=== PATIENT | male | born 1950 | race Caucasian/White ===

== ENCOUNTER 2020-11-23 09:45 | Outpatient (REF) | payer MEDICARE, OTHER, SELFPAY ==
[2020-11-23 11:14] LABS: MANUAL DIFF FLAG NO
[2020-11-23 11:41] LABS: Basophils Percent Auto 0.5 % (0-2); Eosinophils Absolute Auto 0.2 X10*3/uL (0.0-0.4); Eosinophils Percent Auto 3.8 % (0-4); Hematocrit 41.4 % (42-52); Hemoglobin 14.3 g/dl (14.0-18.0); Imm Gran Abs Auto 0.01 X10*3/uL (0.00-0.03); Imm Gran Pct Auto 0.2 % (0.0-0.4); Lymphocytes Absolute Auto 2.5 X10*3/uL (1.2-4.9); Lymphocytes Percent Auto 39.1 % (20-40); Mean Corpuscular HGB Conc 34.5 g/dl (31.0-36.0); Mean Corpuscular Hemoglobin 34.6 pg (27.0-33.0); Mean Corpuscular Volume 100.2 fL (80-98); Mean Platelet Volume 10.5 fL (9.4-12.4); Monocytes Absolute Auto 0.8 X10*3/uL (0.1-1.2); Monocytes Percent Auto 12.3 % (2-11); Neutrophils Absolute Auto 2.8 X10*3/uL (2.0-8.3); Neutrophils Percent Auto 44.1 % (45-73); Platelet Count 261 X10*3/uL (160-400); Red Blood Count 4.13 X10*6/uL (4.60-5.80); Red Cell Distribution Width 11.4 % (11.0-16.0); White Blood Count 6.4 X10*3/uL (4.8-10.8)
[2020-11-23 11:46] LABS: Alanine Aminotransferase 26 U/L (0-40); Albumin Level 4.5 g/dL (3.5-5.0); Alkaline Phosphatase 61 U/L (39-117); Anion Gap 15 (12-20); Aspartate Amino Transferase 22 U/L (5-37); Bilirubin Total 0.4 mg/dL (0.0-1.0); Blood Urea Nitrogen 20 mg/dL (9-16); Calcium 9.3 mg/dL (8.4-10.2); Carbon Dioxide 23 mmol/L (22-29); Chloride 106 mmol/L (96-108); Cholesterol 245 mg/dL; Estimated Glomerular Filt Rate > 60; Glucose Fasting 103 mg/dL (60-99); HDL Cholesterol 64 mg/dL; LDL Cholesterol Calculated 160 mg/dl; Potassium 4.5 mmol/l (3.3-5.1); Sodium 139 mmol/L (135-145); Total Protein 7.3 g/dL (6.5-8.0); Triglycerides 107 mg/dL
[2020-11-23 12:09] LABS: Prostate Specific Antigen Scr 1.44 ng/mL (<0.05-4.0); TSH reflex Free T4 1.81 mIU/mL (0.32-4.0)
[2020-11-23 12:14] LABS: Ferritin 168 ng/mL (20-250)
== END 2020-11-23 09:46 | disposition home or self-care (01) ==
LOC: HO.HMGCLDS 09:45
PROVIDERS: PCP Nurse Practitioner Family; Visit Provider Nurse Practitioner Family
DX: I10 Essential (primary) hypertension (principal); R79.89 Other specified abnormal findings of blood chemistry; Z12.5 Encounter for screening for malignant neoplasm of prostate
CPT/HCPCS: 36415; 80053; 80061; 82728; 84153; 84443; 85025

== ENCOUNTER → 2020-12-06 09:24 | Outpatient (REF) | payer MEDICARE, OTHER, SELFPAY ==
--- NOTE | 2020-12-06 09:28 | CA_ITS ---
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 Normal LV systolic function with grade 1 diastolic dysfunction 2. Mild fibrocalcific aortic valve changes noted with normal cardiac valvular Doppler 3. Normal RV systolic pressure 4. No pericardial effusion Findings Left Ventricle Normal left ventricular size, thickness, and systolic function. The visually estimated ejection fraction is between 60-65%. Spectral Doppler is indicative of an impaired relaxation filling pattern. E/E prime ratio is <8, consistent with normal filling pressures. Evidence suggests grade I (mild) diastolic dysfunction. Right Ventricle Normal right ventricular cavity size and systolic function. Atria Both atria are normal in size. There is lipomatous hypertrophy of the interatrial septum. There is no evidence of interatrial shunt. Aortic Valve There is mild calcification of the aortic valve. There is no aortic valve stenosis. There is no aortic valve regurgitation. Mitral Valve Normal mitral valve structure and function. There is trace mitral valve regurgitation. There is no mitral valve stenosis. Pulmonic Valve The pulmonic valve was not well visualized. Tricuspid Valve Normal tricuspid valve structure. There is mild tricuspid valve regurgitation. The right ventricular systolic pressure is normal. The right ventricular systolic pressure is 33 mmHg. Normal right atrial pressure. There is no evidence of pulmonary hypertension. Great Vessels All visible segments of the aorta are normal in size. The pulmonary artery was not well visualized. Venous The inferior vena cava is normal in size and collapses greater than 50% with inspiration. Pericardium/Pleural There is no evidence of pericardial effusion. Prior Study Comparison No prior study available for comparison. Measurements 2D Linear Measurements IVSd: 1.22 0.6-0.9/0.6-1.0 cm LVIDd: 3.66 3.9-5.3/4.2-5.9 cm LVIDd Index: 2.06 2.4-3.2/2.2-3.1 cm/m2 LVIDs: 2.21 2.0-3.6 cm LVPWd: 1.24 0.7-1.1 cm Ao Root: 2.10 2.1-3.5 cm LA Diam: 3.70 2.7-3.8/3.0-4.0 cm LAIDs Index: 2.08 1.5-2.3 cm/m2 LV Mass: 187.40 67-162/88-224 g LV Mass Index: 105.28 43-95/49-115 g/m2 LVOT Diam: 2.00 3.0+(-)1.3 cm 2D Systolic Function EF 4C: 68.70 >55% EF 2C: 63.70 >55% EF BiP: 65.90 >55% Mitral Valve MV Pk E: 0.59 MV PK A: 0.97 MV Decel Time: 310.00 E/A: 0.60 E'Lateral: 7.16 E'Medial: 4.54 E/E' Med: 12.90 E/E' Lat: 8.20 PHT: 91.00 MVA PHT: 2.42 Decel [place]: 1.89 Aortic Valve AoV Pk Taj: 1.89 AoV Mn Taj: 1.29 AoV VTI: 0.37 AoV Pk Grad: 14.00 Aov Mn Grad: 8.00 WHITNEY Cont.VTI: 2.46 LVOT LVOT Pk Taj: 1.47 LVOT Mn Taj: 0.90 LVOT VTI: 0.29 LVOT Pk Grad: 9.00 LVOT Mn Grad: 4.00 LVOT Diam: 2.00 LVOT Area: 3.14 Diastolic Function MV Pk E: 0.59 MV Pk A: 0.97 E/A: 0.60 E'Medial: 4.54 E/E' Med: 12.90 E' Laterial: 7.16 E/E' Lat: 8.20 Tricuspid Valve TR Pk Taj: 2.74 TR Pk Grad: 30.00 RA Press: 3.00 RVSP: 33.00 Great Vessels Aorta Ao Root-2D: 2.10 2.0-3.7 cm Ao Asc: 3.10 2.1-3.4 cm Pulmonary Valve PV Pk Taj: 1.67 Peak PV Grad: 11.00 Updated in Other Vendor System with Status of Final Pete Amador MD electronically signed on 12/06/2020 2:16:13 PM with status of Final
== END ==
LOC: HO.CARD 09:24
PROVIDERS: PCP Nurse Practitioner Family; Visit Provider Nurse Practitioner Family
DX: R01.1 Cardiac murmur, unspecified (principal)
CPT/HCPCS: 93306

== ENCOUNTER 2021-01-24 08:33 | Outpatient (REF) | payer MEDICARE, OTHER, SELFPAY ==
[2021-01-24 11:38] LABS: Alanine Aminotransferase 23 U/L (0-40); Albumin Level 4.5 g/dL (3.5-5.0); Alkaline Phosphatase 68 U/L (39-117); Anion Gap 12 (12-20); Aspartate Amino Transferase 23 U/L (5-37); Bilirubin Total 0.7 mg/dL (0.0-1.0); Blood Urea Nitrogen 19 mg/dL (9-16); Carbon Dioxide 26 mmol/L (22-29); Chloride 106 mmol/L (96-108); Cholesterol 248 mg/dL; Estimated Glomerular Filt Rate > 60; Glucose Fasting 108 mg/dL (60-99); HDL Cholesterol 63 mg/dL; LDL Cholesterol Calculated 156 mg/dl; Potassium 4.5 mmol/L (3.3-5.1); Sodium 139 mmol/L (135-145); Total Protein 7.2 g/dL (6.5-8.0); Triglycerides 147 mg/dL
== END 2021-01-24 08:34 | disposition home or self-care (01) ==
LOC: HO.HMGCLDS 08:33
PROVIDERS: PCP Nurse Practitioner Family; Visit Provider Nurse Practitioner Family
DX: E78.5 Hyperlipidemia, unspecified (principal)
CPT/HCPCS: 36415; 80053; 80061

== ENCOUNTER 2021-03-21 09:31 | Outpatient (REF) | payer MEDICARE, OTHER, SELFPAY ==
[2021-03-21 12:08] LABS: Cholesterol 186 mg/dL; HDL Cholesterol 66 mg/dL; LDL Cholesterol Calculated 92 mg/dl; Triglycerides 144 mg/dL
== END 2021-03-21 09:32 | disposition home or self-care (01) ==
LOC: HO.HMGCLDS 09:31
PROVIDERS: PCP Nurse Practitioner Family; Visit Provider Nurse Practitioner Family
DX: E78.5 Hyperlipidemia, unspecified (principal)
CPT/HCPCS: 36415; 80061

== ENCOUNTER 2021-07-25 08:47 | Outpatient (REF) | payer MEDICARE, OTHER, SELFPAY ==
[2021-07-25 12:09] LABS: Alanine Aminotransferase 27 U/L (0-40); Albumin Level 4.4 g/dL (3.5-5.0); Alkaline Phosphatase 68 U/L (39-117); Anion Gap 15 (12-20); Aspartate Amino Transferase 23 U/L (5-37); Bilirubin Total 0.8 mg/dL (0.0-1.0); Blood Urea Nitrogen 16 mg/dL (9-16); Calcium 9.7 mg/dL (8.4-10.2); Carbon Dioxide 22 mmol/L (22-29); Chloride 107 mmol/L (96-108); Cholesterol 165 mg/dL; Estimated Glomerular Filt Rate > 60; Glucose Fasting 118 mg/dL (60-99); HDL Cholesterol 63 mg/dL; LDL Cholesterol Calculated 85 mg/dl; Potassium 4.5 mmol/L (3.3-5.1); Sodium 139 mmol/L (135-145); Total Protein 6.8 g/dL (6.5-8.0); Triglycerides 88 mg/dL
== END 2021-07-25 08:48 | disposition home or self-care (01) ==
LOC: HO.HMGCLDS 08:47
PROVIDERS: PCP Nurse Practitioner Family; Visit Provider Nurse Practitioner Family
DX: I10 Essential (primary) hypertension (principal); E78.5 Hyperlipidemia, unspecified
CPT/HCPCS: 36415; 80053; 80061

== ENCOUNTER 2021-12-28 08:59 | Outpatient (REF) | payer MEDICARE, OTHER, SELFPAY ==
[2021-12-28 11:39] LABS: MANUAL DIFF FLAG NO
[2021-12-28 11:42] LABS: Appearance Urine CLEAR; Color Urine YELLOW; Glucose Urine UA NEG (NEG); Leukocyte Esterase Urine NEG (NEG); Nitrite Urine NEG (NEG); Urine Blood NEG (NEG); Urine Ketones NEG (NEG); Urine Protein NEG (NEG-TRACE)
[2021-12-28 11:50] LABS: Basophils Percent Auto 0.5 % (0-2); Eosinophils Absolute Auto 0.2 X10*3/uL (0.0-0.4); Eosinophils Percent Auto 4.1 % (0-4); Hematocrit 38.9 % (42.0-52.0); Hemoglobin 13.2 g/dl (14.0-18.0); Imm Gran Abs Auto 0.01 X10*3/uL (0.00-0.03); Imm Gran Pct Auto 0.2 % (0.0-0.4); Lymphocytes Absolute Auto 2.3 X10*3/uL (1.2-4.9); Lymphocytes Percent Auto 38.5 % (20-40); Mean Corpuscular HGB Conc 33.9 g/dl (31.0-36.0); Mean Corpuscular Hemoglobin 34.1 pg (27.0-33.0); Mean Corpuscular Volume 100.5 fL (80.0-98.0); Mean Platelet Volume 10.5 fL (9.4-12.4); Monocytes Absolute Auto 0.6 X10*3/uL (0.1-1.2); Monocytes Percent Auto 10.8 % (2-11); Neutrophils Absolute Auto 2.7 x10*3/uL (2.0-8.3); Neutrophils Percent Auto 45.9 % (45-73); Platelet Count 246 X10*3/uL (160-400); Red Blood Count 3.87 X10*6/uL (4.60-5.80); Red Cell Distribution Width 11.8 % (11.0-16.0); White Blood Count 5.9 X10*3/uL (4.8-10.8)
[2021-12-28 12:04] LABS: Alanine Aminotransferase 22 U/L (0-40); Albumin Level 4.2 g/dL (3.5-5.0); Alkaline Phosphatase 68 U/L (39-117); Anion Gap 13 (12-20); Aspartate Amino Transferase 20 U/L (5-37); Bilirubin Total 0.6 mg/dL (0.0-1.0); Blood Urea Nitrogen 14 mg/dL (9-16); Calcium 9.6 mg/dL (8.4-10.2); Carbon Dioxide 24 mmol/L (22-29); Chloride 109 mmol/L (96-108); Cholesterol 170 mg/dL; Estimated Glomerular Filt Rate > 60; Glucose Fasting 98 mg/dL (60-99); HDL Cholesterol 59 mg/dL; LDL Cholesterol Calculated 98 mg/dl; Potassium 4.6 mmol/L (3.3-5.1); Sodium 141 mmol/L (135-145); Total Protein 6.9 g/dL (6.5-8.0); Triglycerides 66 mg/dL
[2021-12-28 12:28] LABS: Prostate Specific Antigen Scr 1.32 ng/mL (<0.05-4.0); TSH reflex Free T4 1.21 uIU/mL (0.32-4.0)
== END 2021-12-28 09:00 | disposition home or self-care (01) ==
LOC: HO.HMGCLDS 08:59
PROVIDERS: Visit Provider Nurse Practitioner Family
DX: Z12.5 Encounter for screening for malignant neoplasm of prostate (principal); E78.5 Hyperlipidemia, unspecified; I10 Essential (primary) hypertension
CPT/HCPCS: 36415; 80053; 80061; 81003; 84153; 84443; 85025

== ENCOUNTER 2022-05-30 07:16 | Outpatient (REF) | payer MEDICARE, OTHER, SELFPAY ==
[2022-05-30 11:04] LABS: MANUAL DIFF FLAG NO
[2022-05-30 11:14] LABS: Basophils Percent Auto 0.4 % (0-2); Eosinophils Absolute Auto 0.2 X10*3/uL (0.0-0.4); Eosinophils Percent Auto 3.8 % (0-4); Hematocrit 39.1 % (42.0-52.0); Hemoglobin 13.2 g/dl (14.0-18.0); Imm Gran Abs Auto 0.02 X10*3/uL (0.00-0.03); Imm Gran Pct Auto 0.4 % (0.0-0.4); Lymphocytes Absolute Auto 2.1 X10*3/uL (1.2-4.9); Lymphocytes Percent Auto 38.3 % (20-40); Mean Corpuscular HGB Conc 33.8 g/dl (31.0-36.0); Mean Corpuscular Hemoglobin 34.1 pg (27.0-33.0); Mean Platelet Volume 9.9 fL (9.4-12.4); Monocytes Absolute Auto 0.6 X10*3/uL (0.1-1.2); Monocytes Percent Auto 11.4 % (2-11); Neutrophils Absolute Auto 2.5 x10*3/uL (2.0-8.3); Neutrophils Percent Auto 45.7 % (45-73); Platelet Count 249 X10*3/uL (160-400); Red Blood Count 3.87 X10*6/uL (4.60-5.80); White Blood Count 5.5 X10*3/uL (4.8-10.8)
[2022-05-30 11:14] LABS: Appearance Urine CLEAR; Color Urine YELLOW; Glucose Urine UA NEG (NEG); Leukocyte Esterase Urine NEG (NEG); Nitrite Urine NEG (NEG); PH 5.5 (5.0-8.0); Urine Blood NEG (NEG); Urine Ketones NEG (NEG); Urine Protein NEG (NEG-TRACE)
[2022-05-30 11:26] LABS: Alanine Aminotransferase 18 U/L (0-40); Albumin Level 4.5 g/dL (3.5-5.0); Alkaline Phosphatase 63 U/L (39-117); Anion Gap 14 (12-20); Aspartate Amino Transferase 21 U/L (5-37); Bilirubin Total 0.6 mg/dL (0.0-1.0); Blood Urea Nitrogen 22 mg/dL (9-16); Calcium 9.3 mg/dL (8.4-10.2); Carbon Dioxide 21 mmol/L (22-29); Chloride 108 mmol/L (96-108); Cholesterol 237 mg/dL; Estimated Glomerular Filt Rate > 60; Glucose Fasting 107 mg/dL (60-99); HDL Cholesterol 61 mg/dL; LDL Cholesterol Calculated 152 mg/dl; Potassium 4.7 mmol/L (3.3-5.1); Sodium 138 mmol/L (135-145); Total Protein 7.2 g/dL (6.5-8.0); Triglycerides 120 mg/dL
[2022-05-30 11:48] LABS: Ferritin 174 ng/mL (20-250)
== END 2022-05-30 07:17 | disposition home or self-care (01) ==
LOC: HO.HMGCLDS 07:16
PROVIDERS: Visit Provider Nurse Practitioner Family
DX: E78.5 Hyperlipidemia, unspecified (principal); R79.89 Other specified abnormal findings of blood chemistry
CPT/HCPCS: 36415; 80053; 80061; 81003; 82728; 84443; 85025

== ENCOUNTER 2022-11-22 07:19 | Outpatient (REF) | payer MEDICARE, OTHER, SELFPAY ==
[2022-11-22 11:29] LABS: Appearance Urine Clear; Color Urine Yellow; Glucose Urine UA Negative (Negative); Leukocyte Esterase Urine Negative (Negative); Nitrite Urine Negative (Negative); Specific Gravity - Urine 1.015 (1.005-1.025); Urine Blood Negative (Negative); Urine Ketones Negative (Negative); Urine Protein Negative (Neg-Trace)
[2022-11-22 11:38] LABS: MANUAL DIFF FLAG NO
[2022-11-22 11:46] LABS: Basophils Percent Auto 0.7 % (0-2); Eosinophils Absolute Auto 0.2 X10*3/uL (0.0-0.4); Eosinophils Percent Auto 4.3 % (0-4); Hematocrit 40.4 % (42.0-52.0); Hemoglobin 13.7 g/dl (14.0-18.0); Imm Gran Abs Auto 0.01 X10*3/uL (0.00-0.03); Imm Gran Pct Auto 0.2 % (0.0-0.4); Lymphocytes Absolute Auto 2.6 X10*3/uL (1.2-4.9); Lymphocytes Percent Auto 47.7 % (20-40); Mean Corpuscular HGB Conc 33.9 g/dl (31.0-36.0); Mean Corpuscular Volume 103.3 fL (80.0-98.0); Mean Platelet Volume 10.5 fL (9.4-12.4); Monocytes Absolute Auto 0.6 X10*3/uL (0.1-1.2); Monocytes Percent Auto 11.8 % (2-11); Neutrophils Absolute Auto 1.9 x10*3/uL (2.0-8.3); Neutrophils Percent Auto 35.3 % (45-73); Platelet Count 244 X10*3/uL (160-400); Red Blood Count 3.91 X10*6/uL (4.60-5.80); Red Cell Distribution Width 11.9 % (11.0-16.0); White Blood Count 5.4 X10*3/uL (4.8-10.8)
[2022-11-22 12:17] LABS: Alanine Aminotransferase 36 U/L (0-40); Albumin Level 4.2 g/dL (3.5-5.0); Alkaline Phosphatase 66 U/L (39-117); Anion Gap 14 (12-20); Aspartate Amino Transferase 34 U/L (5-37); Bilirubin Total 0.5 mg/dL (0.0-1.0); Blood Urea Nitrogen 17 mg/dL (9-16); Calcium 9.5 mg/dL (8.4-10.2); Carbon Dioxide 24 mmol/L (22-29); Chloride 107 mmol/L (96-108); Cholesterol 228 mg/dL; Estimated Glomerular Filt Rate > 60; Glucose Fasting 90 mg/dL (60-99); HDL Cholesterol 59 mg/dL; LDL Cholesterol Calculated 147 mg/dl; Potassium 4.7 mmol/L (3.3-5.1); Sodium 140 mmol/L (135-145); Total Protein 6.8 g/dL (6.5-8.0); Triglycerides 111 mg/dL
[2022-11-22 12:21] LABS: TSH reflex Free T4 2.94 uIU/mL (0.32-4.0)
== END 2022-11-22 07:20 | disposition home or self-care (01) ==
LOC: HO.HMGCLDS 07:19
PROVIDERS: PCP Nurse Practitioner Family; Visit Provider Nurse Practitioner Family
DX: E78.5 Hyperlipidemia, unspecified (principal); I10 Essential (primary) hypertension; Z12.5 Encounter for screening for malignant neoplasm of prostate
CPT/HCPCS: 36415; 80053; 80061; 81003; 84153; 84443; 85025

== ENCOUNTER → 2022-12-26 08:18 | Outpatient (BNVA) | payer MEDICARE, OTHER, SELFPAY | PROVIDERS: PCP Nurse Practitioner Family; Visit Provider Nurse Practitioner Family | DX: Z12.11 Encounter for screening for malignant neoplasm of colon (principal) | CPT/HCPCS: 99202 ==

== ENCOUNTER 2023-02-05 06:46 | Outpatient (REF) | payer MEDICARE, OTHER, SELFPAY ==
[2023-02-05 12:27] LABS: Alanine Aminotransferase 33 U/L (0-40); Albumin Level 4.1 g/dL (3.5-5.0); Alkaline Phosphatase 65 U/L (39-117); Anion Gap 11 (12-20); Aspartate Amino Transferase 32 U/L (5-37); Bilirubin Total 0.8 mg/dL (0.0-1.0); Blood Urea Nitrogen 14 mg/dL (9-16); Calcium 9.4 mg/dL (8.4-10.2); Carbon Dioxide 24 mmol/L (22-29); Chloride 110 mmol/L (96-108); Cholesterol 163 mg/dL; Estimated Glomerular Filt Rate > 60; Glucose Fasting 95 mg/dL (60-99); HDL Cholesterol 59 mg/dL; LDL Cholesterol Calculated 83 mg/dl; Potassium 4.4 mmol/L (3.3-5.1); Sodium 141 mmol/L (135-145); Total Protein 6.6 g/dL (6.5-8.0); Triglycerides 107 mg/dL
== END 2023-02-05 06:47 | disposition home or self-care (01) ==
LOC: HO.HMGCLDS 06:46
PROVIDERS: PCP Nurse Practitioner Family; Visit Provider Nurse Practitioner Family
DX: E78.5 Hyperlipidemia, unspecified (principal)
CPT/HCPCS: 36415; 80053; 80061

== ENCOUNTER 2023-03-19 08:43 | Emergency (ER) | payer MEDICARE, OTHER, SELFPAY ==
[2023-03-19 09:12] VITALS: BP 159/83; PULSE 76; RESP 16; TEMP 36.6; O2SAT 98; BMI 26.6
--- NOTE | 2023-03-19 09:49 | ED_ITS ---
HPI - Skin/Abscess/Foreign Bdy General Chief complaint: Skin/Abscess/Foreign Body Stated complaint: Abscess on Buttock Time Seen by Provider: 03/19/23 09:21 Source: patient Mode of arrival: ambulatory Limitations: no limitations History of Present Illness HPI narrative: 72-year-old male with history of hypertension and hyperlipidemia presents to the ER with left hip swelling, redness and wound. Patient reports 2 weeks ago he had a trip and fall landing on a piece of wood hitting the left hip. Patient noted after the fall he had some slight swelling and redness to the area but was unsure if there was any open wound or abrasion. Swelling and redness has continued since then but on Friday the wound opened and expressed quite a bit of drainage which was purulent from the site. Patient reports he felt like the swelling and the pain is better but noticed that there was increasing of redness around the wound site. He denies any fevers, chills, nausea, vomiting. Overall is feeling well. Patient reports he has plans to go on vacation on Friday and [place] be out of the country [place] Patient reports he is able to walk on the hip with no difficulty. Related Data Previous Rx's Medication Instructions Recorded lisinopril 10 mg tablet 10 mg PO DAILY #90 tabs 03/30/22 rosuvastatin 10 mg tablet 10 mg PO DAILY #90 tabs 11/28/22 bisacodyl 5 mg tablet,delayed 10 mg PO ONCE 1 day #2 tabs 12/26/22 release (Dulcolax (bisacodyl)) polyethylene glycol 3350 17 238 g PO ONCE #238 grams 12/26/22 gram/dose oral powder (Miralax) amlodipine 10 mg tablet 10 mg PO DAILY #90 tabs 02/13/23 cephalexin 500 mg capsule 500 mg PO TID #21 caps 03/19/23 sulfamethoxazole 800 1 tab PO BID #14 tabs 03/19/23 mg-trimethoprim 160 mg tablet (Bactrim DS) Allergies Allergy/AdvReac Type Severity Reaction Status Date / Time No Known Allergies Allergy Verified 03/19/23 09:18 [No Known Allergies*] Review of Systems Review of Systems: Yes all other systems are reviewed and are negative Constitutional: Constitutional: Reports no additional constitutional complaints, Denies body ache(s), Denies chills, Denies fever(s), Denies headache(s) and Denies weakness Eyes: Eyes: Reports no additional eye complaints and Denies change in vision ENT: Reports system reviewed and no additional complaints, except as documented, Denies dizziness, Denies headache(s), Denies nasal congestion, Denies nasal discharge and Denies neck pain Cardiovascular: Cardiovascular: Reports no additional cardiovascular complaints, Denies chest pain, Denies leg edema and Denies dyspnea Respiratory: Respiratory: Reports no additional respiratory complaints, Denies cough and Denies dyspnea Gastrointestinal: Gastrointestinal: Reports no additional gastrointestinal complaints, Denies abdominal pain, Denies diarrhea, Denies nausea and Denies vomiting Genitourinary: Genitourinary: Denies urinary incontinence Musculoskeletal: Musculoskeletal: Reports no additional musculoskeletal complaints, Denies back pain, Denies arthralgias, Denies joint swelling, Denies neck pain, Denies numbness and Denies tingling Integumentary/Breasts: Skin/Breast: Reports system reviewed and no additional complaints, except as docu, Reports swelling, Reports erythema, Denies rash and Reports wounds Neurologic: Reports system reviewed and no additional complaints, except as documented, Denies Abnormal speech present, Denies dizziness, Denies headache(s), Denies numbness, Denies tingling and Denies weakness PMFSH Past Medical History Attestation statement: The following information was validated with the patient. Source: old records reviewed and nursing notes reviewed Medical History Anemia Cogwheel rigidity Elevated ferritin Former smoker HTN (hypertension) Tremor Surgical History Hx of removal of neck cyst Family History Family History Father Unknown family medical history Mother Unknown family medical history Brother No problems noted. Brother No problems noted. Sister No problems noted. Son No problems noted. Social History Social History Housing: House Alcohol intake: current Alcohol intake frequency: a few times a week Patient Tobacco Use Status: Former Tobacco user Quit Date: 7 years ago e-Cigarette/Vaping Use: Never Used Second Hand Smoke Exposure: No Advance Directives: No Advance Directives Information Provided: Yes service: No Current occupational status: retired Cognitive needs: No Hearing needs: No Vision needs: No Physical Exam Vital Signs: Vital Signs: Last Vital Signs Temp 97.8 F 03/19/23 09:12 Pulse 76 03/19/23 09:12 Resp 16 03/19/23 09:12 BP 159/83 H 03/19/23 09:12 Pulse Ox 98 03/19/23 09:12 O2 Del Method Room Air 03/19/23 09:12 BMI result Body Mass Index 26.6 Const: General: cooperative, healthy appearing, comfortable and no acute distress Orientation/consciousness: patient oriented x3 Limitations: no limitations HEENT: Head: Yes normal to inspection Ears: hearing grossly normal bilaterally General nose exam: Normal external nose present Face and sinus: Yes normal facial exam Mouth: Normal oral and palatal mucosa present Throat: Yes posterior oropharynx normal Eyes: General: appearance normal, both eyes and all related structures Pupils: Equal, round and reactive pupils present Neck: Neck: Yes normal visual inspection Chest: Chest palpation & inspection: normal inspection of the chest Resp: Effort & Inspection: normal respiratory effort Auscultation: clear to auscultation bilaterally Cardio: Rate: regular rate Rhythm: regular rhythm Peripheral pulses: Peripheral pulses 2+ throughout GI: Inspection: Yes normal to inspection Palpation (GI): Soft to palpation and nontender Auscultation: normal bowel sounds Back/Spine/Pelvis: Thoracic/Lumbar Spine: thoracic and lumbar spine normal to inspection Skin: Other: There is no surrounding induration or fluctuance. I was able to press on all borders of the wound and unable to express any additional drainage. Full range of motion of the hip with no difficulty Neuro: General: patient oriented x3, no focal motor deficits and normal sensation to monofilament Cranial nerves: Yes Equal, round and reactive pupils present Cognition (Neuro): normal cognition Speech: No Abnormal speech present Gait exam (Neuro): Normal gait present Motor exam (neuro): 5/5 motor strength present throughout Extrem: General: Yes normal to inspection Medications Administered Discontinued Medications Generic Name Dose Route Start Last Admin Trade Name Freq PRN Reason Stop Dose Admin Bacitracin 1 appl 03/19/23 09:49 03/19/23 09:55 Bacitracin Oint 0.9 Gm Packet TOPICAL 03/19/23 09:50 1 appl ONCE ONE Administration Protocol Medical Decision Making Medical Decision Making MDM Narrative: This is a 72-year-old male who had a fall 2 weeks ago landing on a piece of wood with subsequent swelling and redness the left hip. Patient reports a boil develops and on Friday this spontaneously started draining. Patient denies any systemic symptoms. He denies any pain of the hip and has full range of motion is able to ambulate with no difficulty. He is here because he is concerned that he is going on vacation in a few days and would like the wound assessed prior to vacation. On exam there is 2 small open areas with surrounding erythema. This is superficial. There was no induration or fluctuance and on unable to express any additional drainage from the wound site. There is full range of motion of the hip with no difficulty. Patient is afebrile and nontoxic appearing. He will need antibiotics for cellulitis. I encouraged him to take a picture on his phone so we can monitor the site and return for any increasing redness, swelling, systemic symptoms. Patient is agreeable to this. Differential Diagnosis Differential Diagnoses: The differential diagnosis associated with the presentation includes Cellulitis Less likely bacteremia, fracture, septic joint, osteomyelitis Discharge Plan Discharge Clinical Impression: Cellulitis Patient Disposition: Home, Self-Care Instructions: Cellulitis (ED) Additional Instructions: Keep the wound clean covered and dry keep the wound clean covered and dry Change the dressing daily Monitor the site carefully and return for any worsening redness, swelling, fever Take Motrin or Tylenol for pain as needed Prescriptions: New cephalexin 500 mg capsule 500 mg PO TID Qty: 21 0RF sulfamethoxazole-trimethoprim [Bactrim DS] 800-160 mg tablet 1 tab PO BID Qty: 14 0RF No Action lisinopril 10 mg tablet 10 mg PO DAILY Qty: 90 3RF rosuvastatin 10 mg tablet 10 mg PO DAILY Qty: 90 1RF amlodipine 10 mg tablet 10 mg PO DAILY Qty: 90 1RF bisacodyl [Dulcolax (bisacodyl)] 5 mg tablet,delayed release (DR/EC) 10 mg PO ONCE 1 Days Qty: 2 0RF Rx Instructions: take 2 tabs at noon the day before your colonoscopy polyethylene glycol 3350 [Miralax] 17 gram/dose powder 238 g PO ONCE Qty: 238 0RF Rx Instructions: As directed by gastroenterology department at [facility] Referrals: Lux Flores, [facility] [Primary Care Provider] - 1 week Interventions: ED Discharge Assessment Last Done: 03/19/23 11:14 Discharge Date/Time: 03/19/23 11:15
[2023-03-19] MEDS: Bacitracin Oint 0.9 GM PACKET 1 APPL TOPICAL (09:55)
== END 2023-03-19 11:15 | disposition home or self-care (01) ==
PROVIDERS: Emergency Provider Emergency Medicine Emergency Medical Services; PCP Nurse Practitioner Family
DX: L03.116 Cellulitis of left lower limb (principal); I10 Essential (primary) hypertension; E78.5 Hyperlipidemia, unspecified; Z79.899 Other long term (current) drug therapy; Z79.02 Long term (current) use of antithrombotics/antiplatelets
CPT/HCPCS: 99282; 99283

== ENCOUNTER 2023-05-20 08:46 | Day surgery (SDC) | payer MEDICARE, OTHER, SELFPAY ==
[2023-05-20 09:03] VITALS: BP 119/68; PULSE 74; RESP 18; TEMP 37; O2SAT 98; BMI 26.6
--- NOTE | 2023-05-20 09:13 | HO.ANESPROP2 ---
HPI - Anesthesia Eval Consult details Narrative: forcolon screen PMFSH Active Problems Active Problems: All Active Problems (Updated 05/20/23 @ 09:02 by Ashley Knott RN) Screening PSA (prostate specific antigen) (Acute) Systolic murmur (Acute) Dyslipidemia (Acute) Screening for colon cancer (Acute) Elevated ferritin (Acute) HTN (hypertension) (Acute) Past Medical History Medical History (Updated 05/20/23 @ 09:02 by Ashley Knott RN) Anemia Cogwheel rigidity Colon adenoma Elevated ferritin Former smoker HTN (hypertension) Tremor Family History Family History Father Unknown family medical history Mother Unknown family medical history Brother No problems noted. Brother No problems noted. Sister No problems noted. Son No problems noted. Family history of problems with anesthesia: No Surgical History Surgical History Hx of removal of neck cyst History of Problems with Anesthesia: No Social History Social History Housing: House Alcohol intake: current Alcohol intake frequency: a few times a week Patient Tobacco Use Status: Former Tobacco user Quit Date: 7 years ago e-Cigarette/Vaping Use: Never Used Second Hand Smoke Exposure: No Use of substances other than those prescribed or required for medical reasons: No Are you DNR?: No Advance Directives: No Advance Directives Information Provided: Yes service: No Current occupational status: retired Cognitive needs: No Hearing needs: No Vision needs: No Meds Allergies Allergy/AdvReac Type Severity Reaction Status Date / Time No Known Allergies Allergy Verified 03/19/23 09:18 [No Known Allergies*] Active Medications: Current Medications Lactated Ringer's (Lr) 1,000 mls @ 100 mls/hr IVCONT .Q10H TOAN Exam Exam Date and Time: May 20, 202313 Height,Weight and Vital Signs: Height 5 ft 4 in Weight 70.307 kg Last Vital Signs Temp 98.6 F 05/20/23 09:03 Pulse 74 05/20/23 09:03 Resp 18 05/20/23 09:03 BP 119/68 05/20/23 09:03 Pulse Ox 98 05/20/23 09:03 O2 Del Method Room Air 05/20/23 09:03 Airway Mallampati Class: II TM Dist: >3cm Neck ROM: Full Denture: Upper Loose/Missing/Broken Teeth: Upper and Lower Heart: rrr Lungs: cta Assessment and Plan Assessment Anesthesia Assessment: Anesthesia Plan Discussed and Chart Reviewed Final Anesthetic Review Family History of Problems with Anesthesia: No History of Problems with Anesthesia: No NPO: Yes ASA Class: II Final Preanesthetic Review: No Changes in Pt Med Stat, Meds/Allgs Chart Reviewed, Consent Obtained/Reviewed and Anes Risks/Benef Reviewed Patient Risk: Low Procedure Risk: Low Anesthetic Plan Anesthetic Plan: MAC: Disposition: Standard PACU
--- NOTE | 2023-05-20 09:16 | P.HPSUR_ITS ---
Pre-Procedural Eval Section A Date of Service: 05/20/23 Section B Chief Complaint: Encounter for screening for malignant neoplasm of Relevant Family History (Specify if Yes): No Relevant Social History: Alcohol Use (occ alcohol use ) Present Medications: see Short Stay Collaborative assessment Medical History: Significant History (Anemia Cogwheel rigidity Colon adenoma Elevated ferritin Former smoker HTN (hypertension) Tremor) History of Previous Operations: Relevant previous surgery/procedure and date(s) (neck cyst ) Allergies: Allergies Allergy/AdvReac Type Severity Reaction Status Date / Time No Known Allergies Allergy Verified 03/19/23 09:18 [No Known Allergies*] Review of Systems Sugical H&P ROS: Negative: Constitution, Cardiovascular, Respiratory, Neurological, Psychiatric, Hem-Onc, Allergic/Immunologic, Gastrointestinal, Genitourinary, Musculoskeletal, Integumentary, Endocrine and Eyes/Ears/Nose/Throat Exam Surgical H&P Exam: Normal: HEENT, Normal: Heart, Normal: Lungs, Normal: Extr emities, Normal: Abdomen and Normal: Skin and Significant Findings: Neurological (parkinsonian facies, intetnion tremor) Plan Diagnosis/Plan: Unchanged I have reviewed the history and physical and performed a pertinent physical examination on my patient. No changes have occurred unless specified. Time Spent With Patient Time: Total time managing care of this patient today ____ minutes.
[2023-05-20] MEDS: Lactated Ringers 1,000 ML 100 ML IVCONT (09:21)
--- NOTE | 2023-05-20 09:38 | W.PM.OPN ---
Operative Note Operative Note Date of Service: 05/20/23 Narrative: Operative Information Procedure Description: Colonoscopy Indication: screening Anesthesia: MAC COLONOSCOPY Instrument: Olympus variable stiffness pediatric scope 190L Colonoscopy Monitoring: Vital signs and clinical assessment, continuous EKG monitoring, Pulse oximetry, Carbon Dioxide monitoring and blood pressure monitoring were done throughout the procedure. Colon withdrawal time was 10 minutes. Procedure: The patient was placed in the left lateral decubitis position and pre-procedure medications were administered. After a digital rectal examination of the ano-rectum, the video colonoscope was inserted into the rectum and advanced through the colon to the cecum/TI. The colonoscope was slowly withdrawn in a retrograde panoramic fashion and the colon mucosa was carefully examined including a retroflexed view of the rectum. Findings and interventions are described below. Procedure Difficulty: easy Findings: Terminal Ileum-normal Cecum:normal Right sided retroflexion normal Ascending Colon: fw diverticula seen Transverse Colon - 10 mm sessile polyp removed with cold snare Descending Colon:normal Sigmoid Colon: moderate diverticulosis Rectum: Retroflexion with small internal hemorrhoids, grade I, 6-8 mm sessile polyp removed with cold forceps Anorectum - normal Colon preparation: [place] Bowel Preparation Scale Right colon; 2 Transverse colon: 3 Left colon; 3 (0 = Unprepared colon segment with mucosa not seen due to solid stool that cannot be cleared. 1 = Portion of mucosa of the colon segment seen, but other areas of the colon segment not well seen due to staining, residual stool and/or opaque liquid. 2 = Minor amount of residual staining, small fragments of stool and/or opaque liquid, but mucosa of colon segment seen well. 3 = Entire mucosa of colon segment seen well with no residual staining, small fragments of stool or opaque liquid) Impression and Post Procedure Diagnosis: polyps internal hemorrhoids diverticular disease Plan: High fiber diet leaflet Avoid straining at stool, epsom salts and sitz bath, anusol supps or cream Repeat Colonoscopy in 5-7 years due to adenomatous appearing polyps if health allows or earlier if clinically indicated Above findings were reviewed with the patient and relevant handouts were provided if indicated.
[2023-05-20 10:11] VITALS: BP 84/54; PULSE 65; RESP 16; TEMP 36.2; O2SAT 95
[2023-05-20 10:16] VITALS: BP 94/55; PULSE 58; RESP 18; O2SAT 95
[2023-05-20 10:21] VITALS: BP 105/63; PULSE 65; RESP 18; O2SAT 96
[2023-05-20 10:26] VITALS: BP 112/70; PULSE 54; RESP 18; TEMP 36.5; O2SAT 96
== END 2023-05-20 10:49 | disposition home or self-care (01) ==
PROVIDERS: PCP Nurse Practitioner Family; Visit Provider Internal Medicine Gastroenterology
PROC: 0DJD8ZZ Inspection of Lower Intestinal Tract, Via Natural or Artificial Opening Endoscopic (ICD-10-PCS; CPT 45378; principal; 2023-05-20 11:10)
DX: Z12.11 Encounter for screening for malignant neoplasm of colon (principal); D12.3 Benign neoplasm of transverse colon; K62.1 Rectal polyp; K57.30 Diverticulosis of large intestine without perforation or abscess without bleeding; K64.0 First degree hemorrhoids; I10 Essential (primary) hypertension; Z86.010 Personal history of colon polyps
CPT/HCPCS: 45385; 45380; 88305; J2250

== ENCOUNTER → 2023-05-20 08:46 | Outpatient (BNV) | payer MEDICARE, OTHER, SELFPAY | PROVIDERS: PCP Nurse Practitioner Family; Visit Provider Internal Medicine Gastroenterology | DX: K63.5 Polyp of colon (principal) | CPT/HCPCS: 45385 ==

== ENCOUNTER 2023-05-21 10:01 | Outpatient (AMB) | payer MEDICARE, OTHER, SELFPAY ==
--- NOTE | 2023-05-21 10:29 | MHC.PC.OV ---
Vital Signs 05/21/23 10:30 Height 5 ft 4 in Weight 155 lb 4 oz BMI 26.6 BP 150/82 H Blood Pressure Location Lt brachial Position Sitting Pulse 77 Pulse Source Pulse Oximeter Pulse Oximetry (%) 97 Oxygen Delivery Method Room Air Intake Visit Reasons: 6 month follow up Allergies No Known Allergies [No Known Allergies*] Allergy (Verified 05/21/23 10:32) Tobacco use date assessed: 05/21/23 Fall risk assessment: 1 Fall in past year Last assessed Fall Risk: 05/21/23 Dental Screening Dental Screen Date: 05/21/23 Did you have a dental visit in the last 12 months?: Yes Did you have a dental problem in the last 6 months where you did not have access to dental care?: No Was dental information given to patient?: Patient has dentist HPI 6 month follow up HPI Details HTN: Blood pressure is managed with amlodipine 10mg and lisinopril 10mg. Pt reports not taking his BP meds for the past 2 days. Denies chest pain, shortness of breath, headache, dizziness, and blurred vision. [facility] Medical History (Updated 05/20/23 @ 09:02 by Ashley Knott RN) Anemia Cogwheel rigidity Colon adenoma Elevated ferritin Former smoker HTN (hypertension) Tremor Surgical History Hx of removal of neck cyst Family History Father Unknown family medical history Mother Unknown family medical history Brother No problems noted. Brother No problems noted. Sister No problems noted. Son No problems noted. Social History Housing: House Alcohol intake: current Alcohol intake frequency: a few times a week Patient Tobacco Use Status: Former Tobacco user Quit Date: 7 years ago e-Cigarette/Vaping Use: Never Used Second Hand Smoke Exposure: No service: No Current occupational status: retired Cognitive needs: No Hearing needs: No Vision needs: No Questionnaire Thrive Questionnaire Date Thrive assessed: 11/18/22 CESAR-7 AMB Questionnaire CESAR-7 Date CESAR - 7 assessed: 11/18/22 Source: Developed by Drs. Emerson L. TusharFelicia valenzuela Kurt Kroenke and colleagues, with an educational brain from [employer]. Review of Systems Const Reports as per HPI Physical exam (Primary Care) Vital Signs: Last Vital Signs Pulse 77 05/21/23 10:30 BP 150/82 H 05/21/23 10:30 Pulse Ox 97 05/21/23 10:30 Oxygen Delivery Method Room Air 05/21/23 10:30 BMI result Body Mass Index 26.6 Tobacco/Smoking Status: Tobacco use Status Tobacco use date assessed 05/21/23 05/21/23 10:35 Patient Tobacco Use Status Former Tobacco user 05/21/23 10:35 e-Cigarette/Vaping Use Never Used 05/21/23 10:35 Thrive Assessment: Date of Thrive Assessment Date Thrive assessed 11/18/22 05/21/23 10:35 Const General: cooperative Orientation/consciousness: patient oriented x3 Resp Effort & Inspection: normal respiratory effort Auscultation: clear to auscultation bilaterally Cardio Rate: regular rate Rhythm: regular rhythm Heart sounds: S1 normal heart sound present and S2 normal heart sound present Neuro General: patient oriented x3 Psych Appearance: grossly normal Mental Status: mental status grossly normal Speech and movement: Normal speech and movement present Affect: normal affect Attitude: cooperative Thought process: Normal thought process present Thought content: Normal thought content present Insight: Good insight present (Psych) Judgement: Good judgement present (Psych) Assessment and Plan Assessment & Plan (1) HTN (hypertension): Code(s): I10 - Essential (primary) hypertension Plan: continue meds Plan The patient agreed to the use of a medical research associate for this encounter. Scribed for BRYCE Grant by Sofiya Napoles medical research associate, on 05/21/2023 at 10:45 EST. Coding Level of Care Code Est Pt Level 3 (18408) Diagnoses HTN (hypertension) I10
[2023-05-21 10:30] VITALS: BP 150/82; PULSE 77; O2SAT 97; BMI 26.6
== END 2023-05-21 10:53 | disposition home or self-care (01) ==
PROVIDERS: Visit Provider Nurse Practitioner Family
DX: I10 Essential (primary) hypertension (principal)
CPT/HCPCS: 99213

== ENCOUNTER 2023-06-03 07:50 | Outpatient (AMB) | payer MEDICARE, OTHER, SELFPAY ==
--- NOTE | 2023-06-03 08:04 | MHC.OFFVIS ---
Intake Vital Signs 06/03/23 08:05 Height 5 ft 4 in Weight 157 lb 6.561 oz BMI 27.0 BP 142/82 H Blood Pressure Location Lt brachial Position Sitting Pulse 69 Intake Visit Reasons: S/p colo Smith Intake Note: Moo presents in office as a est.patient for a post-op for colo. pt got it done 05.20.23 PT CC: pt reports having no concerns pt denies any other GI Issues Passenger Service Agent Required: No Accompanied by: Self / Same As Patient Allergies No Known Allergies [No Known Allergies*] Allergy (Verified 06/03/23 08:05) HPI S/p colo Smith HPI Details LAST VISIT (1) Screening for colon cancer: ?Code(s): Z12.11 - Encounter for screening for malignant neoplasm of colon ?Plan: Patient denies any GI, cardiac or respiratory symptoms.? Denies any issues with anesthesia in the past.? Denies any history of sleep apnea.? No history infectious diseases in the past or present.? Not on any anticoagulation therapy.? No family or personal history of colon cancer or polyps.? Patient denies melena, hematochezia, unintentional weight loss or ribbon like stools.? Discussed at length the pre-procedure,? prep, diet & medications as well as what to expect prior, during and after the procedure.?? Stressed the importance of good bowel prep. ?Recommended the use of Vaseline or Calmoseptine OTC & baby wipes with bowel movements to promote comfort.? ?Patient verbalizes understanding and agrees to plan of care.? She was given the opportunity to ask questions and all questions answered.? We will see her after the procedure.? COLONOSCOPY Findings: Terminal Ileum-normal Cecum:normal Right sided retroflexion normal Ascending Colon: fw diverticula seen Transverse Colon - 10 mm sessile polyp removed with cold snare Descending Colon:normal Sigmoid Colon: moderate diverticulosis Rectum: Retroflexion with small internal hemorrhoids, grade I, 6-8 mm sessile polyp removed with cold forceps Anorectum - normal Colon preparation: [place] Bowel Preparation Scale Right colon; 2 Transverse colon: 3 Left colon; 3 (0 = Unprepared colon segment with mucosa not seen due to solid stool that cannot be cleared. 1 = Portion of mucosa of the colon segment seen, but other areas of the colon segment not well seen due to staining, residual stool and/or opaque liquid. 2 = Minor amount of residual staining, small fragments of stool and/or opaque liquid, but mucosa of colon segment seen well. 3 = Entire mucosa of colon segment seen well with no residual staining, small fragments of stool or opaque liquid) Impression and Post Procedure Diagnosis: polyps internal hemorrhoids diverticular disease Plan: High fiber diet leaflet Avoid straining at stool, epsom salts and sitz bath, anusol supps or cream Repeat Colonoscopy in 5-7 years due to adenomatous appearing polyps if health allows or earlier if clinically indicated Diagnosis A.? Colon, transverse, polyp:? Tubular adenoma; negative for high-grade dysplasia and carcinoma. B.? Colon, rectal polyp:? Hyperplastic polyp. TODAY'S VISIT: Patient is here today for follow-up and to discuss colonoscopy results. Patient denies any ill effects from the prep, anesthesia or procedure itself. Patient states that he has been doing well after the procedure. Patient denies any GI concerning symptoms. He reports that he is moving his bowels well. Moderate diverticulosis seen in sigmoid colon. Patient denies melena, hematochezia, unintentional weight loss or ribbon like stools. PFSH Medical History (Updated 06/03/23 @ 20:24 by RONDA Mcconnell-NICOLE) Anemia Cogwheel rigidity Elevated ferritin Former smoker HTN (hypertension) Tremor Tubular adenoma Surgical History (Updated 06/03/23 @ 20:19 by RONDA Mcconnell-NICOLE) Hx of colonoscopy Hx of removal of neck cyst Status post colonoscopy Family History Father Unknown family medical history Mother Unknown family medical history Brother No problems noted. Brother No problems noted. Sister No problems noted. Son No problems noted. Social History Housing: House Alcohol intake: current Alcohol intake frequency: a few times a week Patient Tobacco Use Status: Former Tobacco user Quit Date: 7 years ago e-Cigarette/Vaping Use: Never Used Second Hand Smoke Exposure: No service: No Current occupational status: retired Cognitive needs: No Hearing needs: No Vision needs: No Review of Systems Const Denies weight gain and Denies weight loss ENT Reports no additional complaints, Denies dysphagia and Denies odynophagia Card Reports no additional complaints Resp Reports no additional complaints GI Denies abdominal pain, Denies belching, Denies melena, Denies bloating, Denies change in bowel habits, Denies dysphagia, Denies excessive flatus, Denies dyspepsia, Denies heartburn, Denies diarrhea, Denies loose stools, Denies nausea, Denies odynophagia and Denies vomiting Reports no additional complaints Musc Reports no additional complaints Neuro Reports no additional complaints Psych Reports no additional complaints Endo Reports no additional complaints Physical Exam Vital Signs: Last Vital Signs Pulse 69 06/03/23 08:05 BP 142/82 H 06/03/23 08:05 BMI result Body Mass Index 27.0 Const General: healthy appearing, no acute distress and well developed Nutritional Appearance: well nourished Orientation/consciousness: patient oriented x3 HEENT Head: Yes normal to inspection, Yes normocephalic and Yes atraumatic Face and sinus: Yes normal facial exam Mouth: Normal oral and palatal mucosa present Throat: Yes posterior oropharynx normal, Yes tonsils normal and Yes uvula midline Eyes General: appearance normal, both eyes and all related structures Neck Neck: Yes normal visual inspection, Yes full ROM and Yes trachea midline Thyroid: Thyroid normal Resp Effort & Inspection: normal respiratory effort, able to speak in complete sentences, no tracheal deviation and symmetric chest movement Auscultation: clear to auscultation bilaterally Cardio Rate: regular rate Heart sounds: S1 normal heart sound present and S2 normal heart sound present GI Inspection: Yes normal to inspection and No distended Palpation (GI): Soft to palpation, not firm, nontender and No hepatosplenomegaly present Auscultation: normal bowel sounds General: Yes no CVA tenderness Back/Spine/Pelvis Back: no CVA tenderness Skin General skin exam: elasticity normal, turgor normal and dry skin Neuro General: patient oriented x3 Psych Appearance: grossly normal Mental Status: mental status grossly normal Speech and movement: Normal speech and movement present Affect: normal affect Assessment & Plan Assessment & Plan (1) Status post colonoscopy: Code(s): Z98.890 - Other specified postprocedural states Plan: Two polyps: Polyp found in transverse colon biopsy showed tubular adenoma without high-grade dysplasia or carcinoma, rectal polyp hyperplastic polyp. Patient denies any ill effects from the prep, anesthesia or procedure itself. Will need to return for colorectal screening in 5 years, sooner if clinically necessary (2) Tubular adenoma: Code(s): D36.9 - Benign neoplasm, unspecified site Plan: One small tubular adenoma found in transverse colon. Colorectal screening in 5 years (3) Diverticulosis: Code(s): K57.90 - Diverticulosis of intestine, part unspecified, without perforation or abscess without bleeding Plan: Moderate diverticulosis of sigmoid colon. Discussed with patient high-fiber diet. List of food high in fiber given to patient. Patient was also encouraged to use [id number] fiber supplement daily. Patient will follow-up with this office on as needed basis. He is agreeable to this plan and verbalizes understanding of instructions. He was given the opportunity to ask questions and all questions answered. Thank you for allowing me to participate in his care Coding Level of Care Code Est Pt Level 3 (29054) Diagnoses Status post colonoscopy Z98.890 Tubular adenoma D36.9 Diverticulosis K57.90 Time Spent (min) 30 Comment 20 minutes spent with patient and additional 10 minutes spent reviewing his records
[2023-06-03 08:05] VITALS: BP 142/82; PULSE 69; BMI 27.0
== END 2023-06-03 15:20 | disposition home or self-care (01) ==
PROVIDERS: PCP Nurse Practitioner Family; Visit Provider Nurse Practitioner Family
DX: Z98.890 Other specified postprocedural states (principal); D36.9 Benign neoplasm, unspecified site; K57.90 Diverticulosis of intestine, part unspecified, without perforation or abscess without bleeding
CPT/HCPCS: 99213

== ENCOUNTER → 2023-06-03 07:50 | Outpatient (BNVA) | payer MEDICARE, OTHER, SELFPAY | PROVIDERS: PCP Nurse Practitioner Family; Visit Provider Nurse Practitioner Family | DX: K57.90 Diverticulosis of intestine, part unspecified, without perforation or abscess without bleeding (principal); D36.9 Benign neoplasm, unspecified site; Z98.890 Other specified postprocedural states | CPT/HCPCS: 99212 ==

== ENCOUNTER 2023-11-27 08:52 | Outpatient (AMB) | payer MEDICARE, OTHER, SELFPAY ==
--- NOTE | 2023-11-27 08:53 | AM.OFFVISMDC ---
Intake Vital Signs 11/27/23 08:58 Height 5 ft 4 in Weight 162 lb BMI 27.8 BP 128/70 Blood Pressure Location Rt brachial Position Sitting Pulse 72 Pulse Source Pulse Oximeter Pulse Oximetry (%) 95 Oxygen Delivery Method Room Air Intake Visit Reasons: AWV G0438 11/10/2017 Allergies No Known Allergies [No Known Allergies*] Allergy (Verified 11/27/23 08:58) Do you need a note to return to daycare/school/sports/work: No HPI AWV G0438 11/10/2017 HPI Details Pt is here for an AWV. Denies fever, chills, and dizziness. [place] of care not filled out. PPP will be scanned in chart and copy will be given to pt. NOTE: tremors noted to ARE, my sister has it and father . Pt refused further eval/referal to neuro for this. Vaccinations recommended to pt. [facility] Medical History (Updated 11/27/23 @ 09:15 by BRYCE Salas) Tubular adenoma Tremor Cogwheel rigidity Former smoker Elevated ferritin Anemia HTN (hypertension) Surgical History Status post colonoscopy Hx of colonoscopy Hx of removal of neck cyst Family History Father Unknown family medical history Mother Unknown family medical history Brother No problems noted. Brother No problems noted. Sister No problems noted. Son No problems noted. Social History Housing: House Alcohol intake: current Alcohol intake frequency: a few times a week Patient Tobacco Use Status: Former Tobacco user Quit Date: 7 years ago e-Cigarette/Vaping Use: Never Used Second Hand Smoke Exposure: No service: No Current occupational status: retired Cognitive needs: No Hearing needs: No Vision needs: No Questionnaire Medicare Wellness Checkup [age] What gender do you identify with?: male During the past 4 weeks, how much have you been bothered by emotional problems such as feeling anxious, depressed, irritable, sad or downhearted, and blue?: not at all During the past 4 weeks, has your physical & emotional health limited your social activities with family, friends, neighbors, or groups?: not at all During the past 4 weeks, how much bodily pain have you generally had?: no pain During the past 4 weeks, was someone available to help you if you needed & wanted help?: yes, as much as I wanted During the past 4 weeks, what was the hardest physical activity you could do for at least 2 minutes?: moderate Can you get to places out of walking distance without help? (For eg., can you travel alone on buses, taxis or drive your car?): Yes Can you go shopping for groceries or clothes without someone's help?: Yes Can you prepare your own meals?: Yes Can you do your housework without help?: Yes Because of any health problems, do you need the help of another person with your personal care needs such as eating, bathing, dressing or getting around the house?: No Can you handle your own money without help?: Yes During the past 4 weeks, how would you rate your health in general?: very good During the past 4 weeks how have things been going for you?: very well; could hardly better Are you having difficulties driving your car?: no Do you always fasten your seat belt when you are in a car?: yes, usually During past 4 weeks, have you been bothered by the following: never: Falling or dizzy when standing up, Sexual problems?, Trouble eating well?, Teeth or denture problems?, Problems using the telephone? and Tiredness or fatigue? Have you fallen 2 or more times in the past year?: No Are you afraid of falling?: No Are you a smoker?: no During the past 4 weeks, how many drinks of wine, beer, or other alcoholic beverages did you have?: 2-5 drinks per week Do you exercise for about 20 minutes 3 or more times a week?: no, I usually do not exercise this much Have you been given information to help with the following?: yes: Keeping track of your medications? and no: Hazards in your house that might hurt you? How often do you have trouble taking medicines the way you have been told to take them?: I always take medicine as prescribed How confident are you that you can control & manage most of your health problems?: very confident What is your race?: White Mini Mental State Exam (MMSE) Orientation What is the (year) (season) (date) (day) (month)?: year (2023) Where are we (state) (county) (town or city) (hospital) (floor[place] state [place] Registration Name of 3 unrelated objects clearly and slowly, then ask patient to repeat all 3 of them. (1st repeat determines score. Make sure they can repeat all three): object 1, object 2 and object 3 Attention & Calculation (CHOOSE ONE) Spell WORLD backwards (DLROW): 5 letters Recall Ask patient to repeat the 3 items from question #3.: object 1, object 2 and object 3 Language Show patient a wristwatch & ask what it is. Repeat for pencil.: watch and pencil Ask the patient to repeat the phrase 'No ifs, ands, or buts' after you.: correct Ask the patient to 'take a piece of paper with their right hand' 'fold paper in half' 'place paper on floor': take paper in right hand, fold paper in half and place paper on floor Print the sentence 'CLOSE YOUR EYES' on a piece. If patient actually closes eyes then score.: followed written direction Give patient a blank piece of paper & ask to write a sentence. Score if it contains a noun & verb.: sentence contains subject and verb Ask patient to copy figure of intersecting pentagons exactly. Score if all 10 angles & 2 intersects are included.: all 10 angles present & 2 are intersected Score Score: 22 Activity of Daily Living Bathing - sponge bath, tub bath or shower: receives no assistance (gets in/out by self, if usual bathing means Dressing - getting clothes from closets & drawers, including inner/outer garments & fasteners.: gets clothes & gets completely dressed without help Toileting - going to the 'toilet room' for urine/bowel elimination & cleaning self/arranging clothes: goes to toilet room, cleans self, arranges clothes without help Transfer: moves in & out of bed and chair without help (may use support object) Continence: controls urination/bowel movements completely by self Feeding: feeds self without help Total Score: 0 Information obtained from: patient Using telephone: independent Traveling: independent Shopping: independent Preparing meals: independent Housework: independent Taking medicine: independent Managing money: independent PHQ-9 Over the last 2 weeks, how often have you been bothered by any of the following problems? 1. Little interest or pleasure in doing things: not at all 2. Feeling down, depressed, or hopeless: not at all 3. Trouble falling or staying asleep, or sleeping too much: not at all 4. Feeling tired or having little energy: not at all 5. Poor appetite or overeating: not at all 6. Feeling bad about yourself - or that you are a failure or have let yourself or your family down: not at all 7. Trouble concentrating on things, such as reading the newspaper or watching television: not at all 8. Moving or speaking so slowly that other people could have noticed. Or the opposite - being so fidgety or restless that you have been moving around a lot more than usual: not at all 9. Thoughts that you would be better off or of hurting yourself in some way: not at all Total score: 0 Depression Screening Interpretation: Negative Depression Screening Done: Yes [id number] - PHQ-9 Billing: Yes Source: Developed by Drs. Emerson Finley, Felicia Dyer, Tin Mckeon and colleagues, with an educational brain from [employer]. Review of Systems Const Reports as per HPI Physical Exam Vital Signs: Last Vital Signs Pulse 72 11/27/23 08:58 BP 128/70 11/27/23 08:58 Pulse Ox 95 11/27/23 08:58 Oxygen Delivery Method Room Air 11/27/23 08:58 BMI result Body Mass Index 27.8 Const General: cooperative Orientation/consciousness: patient oriented x3 Neuro Other: - romberg, can tandem walk, can walk and turn, can rise from sitting to standing, passed whisper test General: patient oriented x3 Psych Appearance: grossly normal Mental Status: mental status grossly normal Speech and movement: Normal speech and movement present Affect: normal affect Attitude: cooperative Thought process: Normal thought process present Thought content: Normal thought content present Insight: Good insight present (Psych) Judgement: Good judgement present (Psych) Assessment & Plan Assessment & Plan (1) Encounter for annual wellness visit (AWV) in Medicare patient: Code(s): Z00.00 - Encounter for general adult medical examination without abnormal findings Plan The patient agreed to the use of a durable medical equipment repairer for this encounter. Scribed for RONDA Grant-NICOLE by Sofiya Napoles durable medical equipment repairer, on 11/27/2023 at 09:05 EST. Quality Reporting (2019) Depression/Bipolar (159/160/161/177) PHQ-9: Total score: 0 Coding Level of Care Code Medicare First (G0438) Diagnoses Encounter for annual wellness visit (AWV) in Medicare patient Z00.00 Advance Care Planning Forms completed: Health Care Proxy (form given to pt to fill out at home), MOLST (form given to pt to fill out at home) and Living will (encouraged pt to get this done )
[2023-11-27 08:58] VITALS: BP 128/70; PULSE 72; O2SAT 95; BMI 27.8
== END 2023-11-27 09:25 | disposition home or self-care (01) ==
PROVIDERS: PCP Nurse Practitioner Family; Visit Provider Nurse Practitioner Family
DX: Z00.00 Encounter for general adult medical examination without abnormal findings (principal)
CPT/HCPCS: G0438

== ENCOUNTER 2024-05-25 06:21 | Outpatient (REF) | payer MEDICARE, OTHER, SELFPAY ==
[2024-05-25 10:12] LABS: MANUAL DIFF FLAG NO
[2024-05-25 10:20] LABS: Appearance Urine Clear; Color Urine Yellow; Glucose Urine UA Negative (Negative); Leukocyte Esterase Urine Negative (Negative); Nitrite Urine Negative (Negative); Urine Blood Negative (Negative); Urine Ketones Negative (Negative); Urine Protein Negative (Neg-Trace)
[2024-05-25 10:27] LABS: Basophils Percent Auto 0.5 % (0-2); Eosinophils Absolute Auto 0.2 X10*3/uL (0.0-0.4); Eosinophils Percent Auto 3.8 % (0-4); Hematocrit 38.3 % (42.0-52.0); Hemoglobin 13.3 g/dl (14.0-18.0); Imm Gran Abs Auto 0.01 X10*3/uL (0.00-0.03); Imm Gran Pct Auto 0.2 % (0.0-0.4); Lymphocytes Absolute Auto 2.4 X10*3/uL (1.2-4.9); Lymphocytes Percent Auto 41.1 % (20-40); Mean Corpuscular HGB Conc 34.7 g/dl (31.0-36.0); Mean Corpuscular Hemoglobin 34.5 pg (27.0-33.0); Mean Corpuscular Volume 99.5 fL (80.0-98.0); Mean Platelet Volume 10.4 fL (9.4-12.4); Monocytes Absolute Auto 0.7 X10*3/uL (0.1-1.2); Monocytes Percent Auto 11.7 % (2-11); Neutrophils Absolute Auto 2.5 x10*3/uL (2.0-8.3); Neutrophils Percent Auto 42.7 % (45-73); Platelet Count 236 X10*3/uL (160-400); Red Blood Count 3.85 X10*6/uL (4.60-5.80); Red Cell Distribution Width 12.2 % (11.0-16.0); White Blood Count 5.8 X10*3/uL (4.8-10.8)
[2024-05-25 10:58] LABS: Alanine Aminotransferase 21 U/L (0-40); Albumin Level 4.2 g/dL (3.5-5.0); Alkaline Phosphatase 67 U/L (39-117); Anion Gap 13 (12-20); Aspartate Amino Transferase 21 U/L (5-37); Bilirubin Total 0.5 mg/dL (0.0-1.0); Blood Urea Nitrogen 18 mg/dL (9-16); Calcium 9.5 mg/dL (8.4-10.2); Carbon Dioxide 20 mmol/L (22-29); Chloride 111 mmol/L (96-108); Cholesterol 157 mg/dL (<200); Estimated Glomerular Filt Rate > 60; Glucose Fasting 109 mg/dL (60-99); HDL Cholesterol 55 mg/dL (>40); LDL Cholesterol Calculated 81 mg/dL (<100); Potassium 4.3 mmol/L (3.3-5.1); Sodium 140 mmol/L (135-145); Total Protein 6.9 g/dL (6.5-8.0); Triglycerides 105 mg/dL (<150)
[2024-05-25 11:13] LABS: TSH reflex Free T4 1.89 uIU/mL (0.32-4.0)
== END 2024-05-25 06:22 | disposition home or self-care (01) ==
LOC: HO.HMGCLDS 06:21
PROVIDERS: PCP Nurse Practitioner Family; Visit Provider Nurse Practitioner Family
DX: E78.5 Hyperlipidemia, unspecified (principal); I10 Essential (primary) hypertension; Z12.5 Encounter for screening for malignant neoplasm of prostate
CPT/HCPCS: 36415; 80053; 80061; 81003; 84153; 84443; 85025

== ENCOUNTER 2024-05-31 08:25 | Outpatient (AMB) | payer MEDICARE, OTHER, SELFPAY ==
[2024-05-31 08:27] VITALS: BP 152/88; PULSE 77; O2SAT 96; BMI 28.2
--- NOTE | 2024-05-31 08:27 | MHC.PC.OV ---
Vital Signs 05/31/24 08:27 Height 5 ft 4 in Weight 164 lb 6 oz BMI 28.2 BP 152/88 H Blood Pressure Location Lt brachial Position Sitting Pulse 77 Pulse Source Pulse Oximeter Pulse Oximetry (%) 96 Oxygen Delivery Method Room Air Intake Visit Reasons: 6 month fu Allergies No Known Allergies [No Known Allergies*] Allergy (Verified 05/31/24 08:28) Tobacco use date assessed: 05/31/24 Fall risk assessment: No Falls in past year Last assessed Fall Risk: 05/31/24 Dental Screening Dental Screen Date: 05/31/24 Did you have a dental visit in the last 12 months?: No Did you have a dental problem in the last 6 months where you did not have access to dental care?: No Was dental information given to patient?: No HPI 6 month fu HPI Details HTN: Blood pressure is managed with amlodipine 10mg and lisinopril 10mg. BP is elevated today. Will increase lisinopril from 10mg to 20mg. Will have pt follow up with nurse navigator for blood pressure checks. Denies chest pain, shortness of breath, headache, dizziness, and blurred vision. Pt reports tremors of his BUE. He reports that these have been present for 1.5 years. He reports his sister also has these, and his father. Will refer to neuro. Pt is a former smoker, quit 5 years ago. Pt smoked around a pack a day since age 14. Will refer for low-dose CT. [facility] Medical History Tubular adenoma Tremor Cogwheel rigidity Former smoker Elevated ferritin Anemia HTN (hypertension) Surgical History Status post colonoscopy Hx of colonoscopy Hx of removal of neck cyst Family History Father Unknown family medical history Mother Unknown family medical history Brother No problems noted. Brother No problems noted. Sister No problems noted. Son No problems noted. Social History Housing: House Alcohol intake: current Alcohol intake frequency: a few times a week Patient Tobacco Use Status: Former Tobacco user e-Cigarette/Vaping Use: Never Used Second Hand Smoke Exposure: No service: No Current occupational status: retired Cognitive needs: No Hearing needs: No Vision needs: No Questionnaire PHQ-9 Over the last 2 weeks, how often have you been bothered by any of the following problems? 1. Little interest or pleasure in doing things: not at all 2. Feeling down, depressed, or hopeless: not at all 3. Trouble falling or staying asleep, or sleeping too much: not at all 4. Feeling tired or having little energy: not at all 5. Poor appetite or overeating: not at all 6. Feeling bad about yourself - or that you are a failure or have let yourself or your family down: not at all 7. Trouble concentrating on things, such as reading the newspaper or watching television: not at all 8. Moving or speaking so slowly that other people could have noticed. Or the opposite - being so fidgety or restless that you have been moving around a lot more than usual: not at all 9. Thoughts that you would be better off or of hurting yourself in some way: not at all Total score: 0 Depression Screening Interpretation: Negative Depression Screening Done: Yes 99256 - PHQ-9 Billing: Yes Source: Developed by Drs. Emerson Finley, Felicia Dyer, Tin Mckeon and colleagues, with an educational brain from [employer] Thrive Questionnaire Date Thrive assessed: 05/31/24 I am a: Patient What is your living situation today?: I have a steady place to live Within the past 12 months, did the food you bought not last and you didn't have the money to get more?: Never true Within the past 12 months, did you worry whether your food would run out before you got money to buy more?: Never true Do you have trouble paying for medicines?: No Do you have trouble getting transportation to medical appointments?: No Do you have trouble paying your heating and electricity bill?: No Do you have trouble taking care of your child, family member or friend?: No Do you have trouble with day-to-day activities such as bathing, preparing meals, shopping, managing finances, etc.?: No Are you currently unemployed and looking for a job?: No Are you interested in more education?: No Please select the resources that you would like help with: Housing/Detention Currently or been in a relationship where the following occur: I choose not to answer THRIVE Score: 0 AUDIT C Alcohol Use Questionnaire (AUDIT-C) 1. How often do you have a drink containing alcohol?: 2-4 times a month 2. How many drinks containing alcohol do you have on a typical day when you are drinking?: 1 or 2 3. How often do you have six or more drinks on one occasion?: Never Total Score: 2 Score Reviewed/Action Taken: Yes CESAR-7 AMB Questionnaire CESAR-7 Date CESAR - 7 assessed: 05/31/24 Feeling nervous, anxious, or on edge: 0 = Not at all Not being able to stop or control worryin = Not at all Worrying too much about different things: 0 = Not at all Trouble relaxin = Not at all Being so restless that it is hard to sit still: 0 = Not at all Becoming easily annoyed or irritable: 0 = Not at all Feeling afraid as if something awful might happen: 0 = Not at all Total CESAR-7 score (0-4 normal; 5-9 mild; 10-14 moderate; 15-21 severe): 0 Source: Developed by Drs. Emerson Finley, Felicia Dyer, Tin Mckeon and colleagues, with an educational brain from [employer] CESAR-7 Assessment Billing CESAR-7 Assessment Tool: CESAR-7 Assessment 17993 Review of Systems Const Reports as per HPI Physical exam (Primary Care) Vital Signs: Last Vital Signs Pulse 77 05/31/24 08:27 BP 152/88 H 05/31/24 08:27 Pulse Ox 96 05/31/24 08:27 Oxygen Delivery Method Room Air 05/31/24 08:27 BMI result Body Mass Index 28.2 Tobacco/Smoking Status: Tobacco use Status Tobacco use date assessed 05/31/24 05/31/24 08:31 Patient Tobacco Use Status Former Tobacco user 05/31/24 08:31 e-Cigarette/Vaping Use Never Used 05/31/24 08:31 PHQ-9: PHQ-9 Score PHQ-9: Total score 0 05/31/24 08:44 Depression Screening Interpretation: Negative Thrive Assessment: Date of Thrive Assessment Date Thrive assessed 05/31/24 05/31/24 08:31 Currently or been in a relationship where the following occur: I choose not to answer Const General: cooperative Orientation/consciousness: patient oriented x3 Resp Other: lungs fairly clear Effort & Inspection: normal respiratory effort Cardio Rate: regular rate Rhythm: regular rhythm Heart sounds: S1 normal heart sound present and S2 normal heart sound present Neuro General: patient oriented x3 Extrem Right lower extremity: no edema Left lower extremity: no edema Psych Appearance: grossly normal Mental Status: mental status grossly normal Speech and movement: Normal speech and movement present Affect: normal affect Attitude: cooperative Thought process: Normal thought process present Thought content: Normal thought content present Insight: Good insight present (Psych) Judgement: Good judgement present (Psych) Assessment and Plan Assessment & Plan (1) HTN (hypertension): Code(s): I10 - Essential (primary) hypertension Plan: Increasing lisinopril to 20mg (2) Tremor: Code(s): R25.1 - Tremor, unspecified Plan: Referred to neuro (3) Former smoker: Code(s): Z87.891 - Personal history of nicotine dependence Plan: Referred to pulmonary for LDCT Plan The patient agreed to the use of a family practice medical doctor for this encounter. Scribed for BRYCE Grant by Sofiya Napoles family practice medical doctor, on 05/31/2024 at 08:45 EST. Orders: Referrals Neurology Referral R25.1 - Tremor, unspecified Pulmonology Referral Z87.891 - Personal history of nicotine dependence Medications: Changed From lisinopril 10 mg PO DAILY 90 tabs 1RF To lisinopril 20 mg PO DAILY 90 tabs 1RF Coding Level of Care Code Est Pt Level 3 (62449) Diagnoses HTN (hypertension) I10 Tremor R25.1 Former smoker Z87.891 Additional Codes CESAR-7 Assessment Billing - CESAR-7 Assessment Tool: CESAR-7 Assessment 36978 ([id number])
== END 2024-05-31 08:53 | disposition home or self-care (01) ==
PROVIDERS: PCP Nurse Practitioner Family; Visit Provider Nurse Practitioner Family
DX: I10 Essential (primary) hypertension (principal); R25.1 Tremor, unspecified; Z87.891 Personal history of nicotine dependence
CPT/HCPCS: 99213

== ENCOUNTER 2024-07-16 09:46 | Outpatient (AMB) | payer MEDICARE, OTHER, SELFPAY ==
--- NOTE | 2024-07-16 07:51 | MHC.OFFVIS ---
Intake Visit Reasons: Former Smoker Allergies No Known Allergies [No Known Allergies*] Allergy (Verified 05/31/24 08:28) HPI HPI Former Smoker: Details: Initial visit for this 73yo former smoker with a 50PYH. Patient started smoking at age 15 for 52 years at 1ppd. He quit in 11/2017 (when hospitalized for a week for neck cyst excision). . Denies marijuana use. Denies second hand smoke exposure. Denies exposure to chemicals or substances like asbestos. . Denies known family history of lung cancer. Denies personal history of cancers. Denies chest CT in last year. . Denies recent travel outside the [place]. Denies recent respiratory illness or recent hospitalization for respiratory issues. Denies testing positive for COVID. Admits receiving COVID Vaccine. x3. . Denies fever, chills, new/worsening cough, hemoptysis, hoarseness or dysphagia. Denies significant chest pain, significant dyspnea or unintentional weight loss. Patient Lung Cancer Screening Questionnaire reviewed with patient by provider. . Shared Decision Making Completed. Patient meets criteria. Discussed in detail with patient, the risk vs benefit of LDCT screening. Patient consents to proceed with scan. Discussed and encouraged continued smoking cessation. [facility] Medical History (Updated 07/16/24 @ 09:50 by Charlotte Ang PA-C) Tremor Cogwheel rigidity HTN (hypertension) Dyslipidemia Anemia Personal history of nicotine dependence Tubular adenoma Elevated ferritin Surgical History (Updated 07/15/24 @ 15:13 by Charlotte Ang PA-C) History of colonoscopy Hx of removal of neck cyst Family History Father Unknown family medical history Mother Unknown family medical history Brother No problems noted. Brother No problems noted. Sister No problems noted. Son No problems noted. Social History (Updated 07/16/24 @ 09:50 by Charlotte Ang PA-C) Housing: House Alcohol intake: current Alcohol intake frequency: a few times a week Patient Tobacco Use Status: Former Tobacco user Years Smoked: (onset 15yo, 1ppd x 52yrs, 50pyh - quit 2018) e-Cigarette/Vaping Use: Never Used Second Hand Smoke Exposure: No service: No Current occupational status: retired Cognitive needs: No Hearing needs: No Vision needs: No Assessment & Plan Assessment & Plan (1) Personal history of nicotine dependence: Comment: (former smoker - onset 15yo, 1ppd x 52yrs, 50pyh - quit 2018) Code(s): Z87.891 - Personal history of nicotine dependence Category: Medical Plan: - SDM visit completed today in office. - Patient meets criteria for LDCT for lung cancer screening purposes and is asymptomatic. - Smoking cessation counseling offered. Patients can always call [phone]. - Will arrange for a LDCT scan of the chest for screening purposes at [facility]. - Risks, benefits, and alternatives were discussed in detail and the patient agrees to proceed. - Risks discussed include but are not limited to: radiation exposure, anxiety during testing and while awaiting results, false negatives, false positives and possibility of additional intervention such as further imaging or surgical procedures for benign disease. - Benefits are obviously detection of lung cancer at an early stage which can lead to improved outcomes. - Discussed the importance of screening program compliance with adherence to yearly LDCT scan as scheduled - or sooner interval scans for personalized screening regimen. - Discussed follow up plan. Our office will send a letter discussing results and if needed set up phone call and office visit based on CT findings. - Patient educated on results categorization and the management decisions for suspicious findings potentially found on the screening LDCT scan. Any patient with a Lung RADS score of 3 or 4 will be reviewed by a multidisciplinary team at [facility] to form a plan of action in regards to scan findings. - If further work up is warranted for a suspicious lung finding this will be followed by the Lung Cancer Screening program in conjunction with the Thoracic Surgery Department at [facility]. - A copy of the office note and LDCT will be sent to the patient's PCP - as well as documentation on any associated further plans of care. - Incidental findings on LDCT are the PCP's responsibility. These findings are indicated with an S finding on the LDCT Assessment. A note discussing the findings will be sent to the PCP who is then responsible for further management. - All questions answered.? Coding Level of Care Code Lung Cancer Screening G0296 Diagnoses Personal history of nicotine dependence Z87.891
== END 2024-07-16 10:16 | disposition home or self-care (01) ==
PROVIDERS: PCP Nurse Practitioner Family; Visit Provider Physician Assistant Medical
DX: Z87.891 Personal history of nicotine dependence (principal)
CPT/HCPCS: G0296

== ENCOUNTER 2024-07-16 09:58 | Outpatient (REF) | payer MEDICARE, OTHER, SELFPAY ==
--- NOTE | ~2024-07-16 | CT_ITS ---
EXAMINATION: CT LOW-DOSE SCREENING CHEST WITHOUT CONTRAST CLINICAL INFORMATION: Personal history of nicotine dependence. Former smoker. The patient has a 52 pack-year history of smoking, having quit 6 years ago. COMPARISON: X-ray chest July 30, 2009. TECHNIQUE: Multidetector volumetric CT imaging of the chest is performed on a Siemens SOMATOM Definition scanner without contrast using low dose technique. Additional 2D coronal and sagittal reformatted images and axial 3D maximum intensity projection (MIP) images are generated on the CT workstation. This CT examination was performed using dose optimization techniques as appropriate, variously including the following: *Automated exposure control *Adjustment of mA and/or kV according to patient size (this includes techniques or standardized protocols for targeted exams where dose is matched to indication/reason for exam; i.e. extremities or head) *Use of iterative reconstruction technique TOTAL EXAM DLP: 48 mGy-cm. CTDIvol: 1.53 mGy. FINDINGS: PULMONARY NODULES: There is a right upper lobe pulmonary nodule measuring 10.2 x 9.5 x 8.0 mm for a mean diameter of 9.2 mm (5:205). No other lung nodules are seen. LUNGS: Lungs bilaterally symmetrically expanded. Minimal emphysematous changes are present. Mild bronchial thickening is seen without bronchiectasis. There is an accessory azygos fissure. No effusion or pneumothorax. Central airways patent. MEDIASTINUM: No mediastinal, hilar or axillary adenopathy or free fluid collection. CORONARY ARTERY CALCIFICATION: Marked THYROID GLAND: Unremarkable to the extent seen. CARDIOVASCULAR STRUCTURES: Aortic and heart size normal. No pericardial effusion. CHEST WALL/AXILLA: Unremarkable. UPPER ABDOMEN: Included portions of the solid organs in the upper abdomen unremarkable on noncontrast imaging. The left adrenal gland appears minimally nodular. OSSEOUS STRUCTURES: No suspicious focal findings. CT/CT lung screening IMPRESSION: 9.2 mm mean diameter nodule at baseline study is considered very suspicious. ASSESSMENT: 1. Lung-RADS Category 4B: Suspicious findings. N/A 2. Lung-RADS Category S: Negative. There are no clinically significant or potentially clinically significant findings not related to the lungs requiring urgent additional evaluation. RECOMMENDATION: Tissue sampling is recommended depending on the probability of malignancy and comorbidities. PET/CT is a consideration. Electronically signed by: Blake Melgar MD 08/14/2024 03:15 PM EDT RP
== END 2024-07-16 09:59 | disposition home or self-care (01) ==
LOC: HO.CT 09:58
PROVIDERS: PCP Nurse Practitioner Family; Visit Provider Physician Assistant Medical
DX: Z12.2 Encounter for screening for malignant neoplasm of respiratory organs (principal); Z87.891 Personal history of nicotine dependence
CPT/HCPCS: 71271; G0296

== ENCOUNTER 2024-09-01 07:52 | Outpatient (REF) | payer MEDICARE, OTHER, SELFPAY ==
--- NOTE | 2024-09-01 08:49 | PFT_ITS ---
Flows: FEV1: 106 % of predicted at 2.70 L FVC: 104 % of predicted at 3.46 L FEV1/FVC: 78 % Bronchodilator response: Absent Volumes: Total lung capacity: 94 % of predicted at 5.42 L Residual volume: 82 % of predicted at 1.75 L Slow vital capacity: 102 % of predicted at 3.67 L Expiratory reserve volume: 86 % of predicted at 0.78 L Diffusion capacity: Normal Impression: No obstructive or restrictive ventilatory defect. No bronchodilator response. Normal pulmonary function test. MTDD
[2024-09-01 11:01] VITALS: PULSE 62; RESP 16; O2SAT 96
== END 2024-09-01 07:53 | disposition home or self-care (01) ==
LOC: HO.RESP 07:52
PROVIDERS: PCP Nurse Practitioner Family; Visit Provider Physician Assistant Medical
DX: R91.1 Solitary pulmonary nodule (principal); Z87.891 Personal history of nicotine dependence
CPT/HCPCS: 94010; 94640; 94727; 94729

== ENCOUNTER → 2024-09-01 08:49 | Outpatient (BNV) | payer MEDICARE, OTHER, SELFPAY | PROVIDERS: PCP Nurse Practitioner Family; Visit Provider Internal Medicine Pulmonary Disease | DX: R91.1 Solitary pulmonary nodule (principal) | CPT/HCPCS: 94060; 94727; 94729 ==

== ENCOUNTER 2024-09-15 09:21 | Outpatient (AMB) | payer MEDICARE, OTHER, SELFPAY ==
[2024-09-15 09:23] VITALS: BP 124/82; PULSE 72; O2SAT 98; BMI 28.3
--- NOTE | 2024-09-15 09:23 | A.OFFVIS_ITS ---
Vital Signs 09/15/24 09:23 Height 5 ft 4 in Weight 165 lb BMI 28.3 BP 124/82 Blood Pressure Location Rt brachial Position Sitting Pulse 72 Pulse Source Doppler Pulse Oximetry (%) 98 Oxygen Delivery Method Room Air Intake Visit Reasons: Pulmonary Nodule Allergies No Known Allergies [No Known Allergies*] Allergy (Verified 09/15/24 09:27) HPI HPI Pulmonary Nodule: Details: 73-year-old gentleman, former approximately 50 pack-year smoker, quit 2018, referred from lung cancer screening program where patient on initial lung cancer screening CT chest was noted to have a 9 mm right upper lobe nodule. Patient had PET-CT that did not demonstrate any significant FDG uptake in the index nodule. He denies any dyspnea on exertion. His pulmonary function test is essentially normal. Patient denies prior personal or family history of lung disease. 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 [facility] Medical History (Updated 08/20/24 @ 11:49 by Charlotte Ang PA-C) Tremor Cogwheel rigidity HTN (hypertension) Dyslipidemia Anemia Personal history of nicotine dependence Tubular adenoma Elevated ferritin Surgical History (Updated 07/15/24 @ 15:13 by Charlotte Ang PA-C) History of colonoscopy Hx of removal of neck cyst Family History Father Unknown family medical history Mother Unknown family medical history Brother No problems noted. Brother No problems noted. Sister No problems noted. Son No problems noted. Social History Housing: House Alcohol intake: current Alcohol intake frequency: a few times a week Patient Tobacco Use Status: Former Tobacco user Years Smoked: (onset 15yo, 1ppd x 52yrs, 50pyh - quit 2018) e-Cigarette/Vaping Use: Never Used Second Hand Smoke Exposure: No service: No Current occupational status: retired Cognitive needs: No Hearing needs: No Vision needs: No Review of Systems Const Denies daytime sleepiness, Denies excessive sweating, Denies fatigue, Denies fever(s), Denies lethargy, Denies malaise, Denies night sweats, Denies snoring and Denies weight loss Eyes Denies blurry vision and Denies itchy eyes ENT Denies nasal congestion, Denies post nasal drip, Denies sinus pain, Denies sinus pressure and Denies other ( Thrush) Card Denies chest pain, Denies pedal edema, Denies dyspnea, Denies orthopnea and Denies paroxysmal nocturnal dyspnea Resp Denies cough, Denies hemoptysis, Denies excessive phlegm production, Denies dyspnea, Denies snoring and Denies wheezing GI Denies abdominal pain and Denies heartburn Musc Denies myalgias, Denies arthralgias and Denies joint swelling Skin/Breast Denies rash Neuro Denies memory loss and Denies seizure-like activity Psych Denies abnormal sleep pattern, Denies anxiety and Denies memory loss Endo Denies excessive sweating, Denies fatigue and Denies heat intolerance Mat/Lymph Denies easy bruising Aller/Immun Denies itchy eyes, Denies seasonal rhinorrhea and Denies wheezing Physical Exam Vital Signs: Last Vital Signs Pulse 72 09/15/24 09:23 BP 124/82 09/15/24 09:23 Pulse Ox 98 09/15/24 09:23 Oxygen Delivery Method Room Air 09/15/24 09:23 BMI result Body Mass Index 28.3 Const General: no acute distress and alert Nutritional Appearance: not obese Orientation/consciousness: Other orientation findings ( oriented) HEENT Head: Yes atraumatic Eyes General: appearance normal, both eyes and all related structures Sclerae: sclerae normal EOM: EOMs intact bilaterally Neck Neck: Yes supple Lymphatic: no lymphadenopathy noted Resp Effort & Inspection: normal respiratory effort and no use of accessory muscles Auscultation: clear to auscultation bilaterally Cardio Rate: regular rate Rhythm: regular rhythm Heart sounds: no gallops, no murmurs and no rubs Skin General skin exam: other ( warm) Extrem General: No clubbing, No cyanosis and No edema Assessment & Plan Assessment & Plan (1) Right upper lobe pulmonary nodule: Comment: (10.2 x 9.5 x 8.0 mm RUL pulmonary nodule on 07/16/24 LDCT) Code(s): R91.1 - Solitary pulmonary nodule Category: Medical Plan: PET negative nodule, will repeat CT scan in 3 months. Ordered. Orders: Orders CT chest wo IV con 12/13/23 R91.1 - Solitary pulmonary nodule Coding Level of Care Code New Pt Level 3 (31353) Diagnoses Right upper lobe pulmonary nodule R91.1
== END 2024-09-15 09:40 | disposition home or self-care (01) ==
LOC: HO.HPS 09:22
PROVIDERS: PCP Nurse Practitioner Family; Referring Provider Physician Assistant Medical; Visit Provider Internal Medicine Pulmonary Disease
DX: R91.1 Solitary pulmonary nodule (principal)
CPT/HCPCS: 99213

== ENCOUNTER → 2024-09-15 09:21 | Outpatient (BNVA) | payer MEDICARE, OTHER, SELFPAY | PROVIDERS: PCP Nurse Practitioner Family; Referring Provider Physician Assistant Medical; Visit Provider Internal Medicine Pulmonary Disease | DX: R91.1 Solitary pulmonary nodule (principal); Z87.891 Personal history of nicotine dependence | CPT/HCPCS: 99212 ==

== ENCOUNTER 2024-12-01 08:47 | Outpatient (AMB) | payer MEDICARE, OTHER, SELFPAY ==
--- NOTE | 2024-12-01 08:53 | A.OFFVIS_ITS ---
Intake Vital Signs 12/01/24 08:55 Height 5 ft 4 in Weight 164 lb BMI 28.1 BP 130/80 Blood Pressure Location Rt brachial Position Sitting Pulse 74 Pulse Source Pulse Oximeter Pulse Oximetry (%) 97 Intake Visit Reasons: SWV G0439 Intake Note: pt is here for MWV Accompanied by: Self / Same As Patient Allergies No Known Allergies [No Known Allergies*] Allergy (Verified 12/01/24 08:55) Do you need a note to return to daycare/school/sports/work: No HPI SWV G0439 HPI Details PPP in scan pile. CCC not filled out. pt sees a architectural representative, gets LDCTs as well. upcoming neuro appt for tremors (reports not drinking excessively) PFSH Medical History Tremor Cogwheel rigidity HTN (hypertension) Dyslipidemia Anemia Personal history of nicotine dependence Tubular adenoma Elevated ferritin Surgical History History of colonoscopy Hx of removal of neck cyst Family History Father Unknown family medical history Mother Unknown family medical history Brother No problems noted. Brother No problems noted. Sister No problems noted. Son No problems noted. Social History Housing: House Alcohol intake: current Alcohol intake frequency: a few times a week Patient Tobacco Use Status: Former Tobacco user Years Smoked: (onset 15yo, 1ppd x 52yrs, 50pyh - quit 2017) e-Cigarette/Vaping Use: Never Used Second Hand Smoke Exposure: No service: No Current occupational status: retired Cognitive needs: No Hearing needs: No Vision needs: No Questionnaire Medicare Wellness Checkup What [age] What gender do you identify with?: male During the past 4 weeks, how much have you been bothered by emotional problems such as feeling anxious, depressed, irritable, sad or downhearted, and blue?: not at all During the past 4 weeks, has your physical & emotional health limited your social activities with family, friends, neighbors, or groups?: not at all During the past 4 weeks, how much bodily pain have you generally had?: no pain During the past 4 weeks, was someone available to help you if you needed & wanted help?: yes, as much as I wanted During the past 4 weeks, what was the hardest physical activity you could do for at least 2 minutes?: moderate Can you get to places out of walking distance without help? (For eg., can you travel alone on buses, taxis or drive your car?): Yes Can you go shopping for groceries or clothes without someone's help?: Yes Can you prepare your own meals?: Yes Can you do your housework without help?: Yes Because of any health problems, do you need the help of another person with your personal care needs such as eating, bathing, dressing or getting around the house?: No Can you handle your own money without help?: Yes During the past 4 weeks, how would you rate your health in general?: very good During the past 4 weeks how have things been going for you?: very well; could hardly better Are you having difficulties driving your car?: no Do you always fasten your seat belt when you are in a car?: yes, usually During past 4 weeks, have you been bothered by the following: never: Falling or dizzy when standing up, Sexual problems?, Trouble eating well?, Teeth or denture problems?, Problems using the telephone? and Tiredness or fatigue? Have you fallen 2 or more times in the past year?: No Are you afraid of falling?: No Are you a smoker?: no During the past 4 weeks, how many drinks of wine, beer, or other alcoholic beverages did you have?: 2-5 drinks per week Do you exercise for about 20 minutes 3 or more times a week?: yes, most of the time Have you been given information to help with the following?: yes: Keeping track of your medications? and no: Hazards in your house that might hurt you? How often do you have trouble taking medicines the way you have been told to take them?: I do not have to take medicine How confident are you that you can control & manage most of your health problems?: very confident What is your race?: White Mini Mental State Exam (MMSE) Orientation What is the (year) (season) (date) (day) (month)?: year, season, date, day and month Where are we (state) (county) (town or city) (hospital) (floor)?: state, county, town or city, hospital/clinic and floor Registration Name of 3 unrelated objects clearly and slowly, then ask patient to repeat all 3 of them. (1st repeat determines score. Make sure they can repeat all three): object 1, object 2 and object 3 Attention & Calculation (CHOOSE ONE) Spell WORLD backwards (DLROW): 5 letters Recall Ask patient to repeat the 3 items from question #3.: object 1, object 2 and object 3 Language Show patient a wristwatch & ask what it is. Repeat for pencil.: watch Ask the patient to repeat the phrase 'No ifs, ands, or buts' after you.: correct Ask the patient to 'take a piece of paper with their right hand' 'fold paper in half' 'place paper on floor': take paper in right hand, fold paper in half and place paper on floor Print the sentence 'CLOSE YOUR EYES' on a piece. If patient actually closes eyes then score.: followed written direction Give patient a blank piece of paper & ask to write a sentence. Score if it contains a noun & verb.: sentence contains subject and verb Ask patient to copy figure of intersecting pentagons exactly. Score if all 10 angles & 2 intersects are included.: all 10 angles present & 2 are intersected Score Score: 29 Activity of Daily Living Bathing - sponge bath, tub bath or shower: receives no assistance (gets in/out by self, if usual bathing means Dressing - getting clothes from closets & drawers, including inner/outer garments & fasteners.: gets clothes & gets completely dressed without help Toileting - going to the 'toilet room' for urine/bowel elimination & cleaning self/arranging clothes: goes to toilet room, cleans self, arranges clothes without help Transfer: moves in & out of bed and chair without help (may use support object) Continence: controls urination/bowel movements completely by self Feeding: feeds self without help Total Score: 0 Information obtained from: patient Using telephone: independent Traveling: independent Preparing meals: independent Housework: independent Taking medicine: independent Managing money: independent PHQ-9 Over the last 2 weeks, how often have you been bothered by any of the following problems? 1. Little interest or pleasure in doing things: not at all 2. Feeling down, depressed, or hopeless: not at all 3. Trouble falling or staying asleep, or sleeping too much: not at all 4. Feeling tired or having little energy: not at all 5. Poor appetite or overeating: not at all 6. Feeling bad about yourself - or that you are a failure or have let yourself or your family down: not at all 7. Trouble concentrating on things, such as reading the newspaper or watching television: not at all 8. Moving or speaking so slowly that other people could have noticed. Or the opposite - being so fidgety or restless that you have been moving around a lot more than usual: not at all 9. Thoughts that you would be better off or of hurting yourself in some way: not at all Total score: 0 Depression Screening Interpretation: Negative Depression Screening Done: Yes 46308 - PHQ-9 Billing: Yes Source: Developed by Drs. Emerson Finley, Felicia Dyer, Tin Mckeon and colleagues, with an educational brain from [employer]. Review of Systems Card Denies chest pain at rest and Denies chest pain with activity GI Denies melena and Denies hematochezia Denies hematuria Neuro Details: tremors to BUE Psych Denies anxiety and Denies depression Physical Exam Vital Signs: Last Vital Signs Pulse 74 12/01/24 08:55 BP 130/80 12/01/24 08:55 Pulse Ox 97 12/01/24 08:55 BMI result Body Mass Index 28.1 Neuro Other: rhomberg neg, able to stand from sitting position, able to tandem walk, passed whisper test. Psych Appearance: grossly normal Mental Status: mental status grossly normal Speech and movement: Normal speech and movement present Affect: normal affect Attitude: cooperative Thought process: Normal thought process present Insight: Good insight present (Psych) Judgement: Good judgement present (Psych) Assessment & Plan Assessment & Plan (1) Encounter for annual wellness visit (AWV) in Medicare patient: Code(s): Z00.00 - Encounter for general adult medical examination without abnormal findings (2) Screening for osteoporosis: Code(s): Z13.820 - Encounter for screening for osteoporosis Plan . Orders: Orders XR DEXA axial skeleton Today Z13.820 - Encounter for screening for osteoporosis Quality Reporting (2020) Depression/Bipolar (159/160/161/177) PHQ-9: Total score: 0 Coding Level of Care Code Medicare First (G0438) Diagnoses Encounter for annual wellness visit (AWV) in Medicare patient Z00.00 Screening for osteoporosis Z13.820 CPT Codes Advance Care Planning - Time spent: 1-15 minutes, on File ([id number]) Additional Codes PHQ-9 - 15219 - PHQ-9 Billing: Yes ([id number]) Advance Care Planning Forms completed: Health Care Proxy (form given to pt and explained), MOLST (form given to pt and explained) and Living will (refused) Time spent: 1-15 minutes, on File Actual minutes spent: 12
[2024-12-01 08:55] VITALS: BP 130/80; PULSE 74; O2SAT 97; BMI 28.1
--- OUTSIDE RECORDS SUMMARY | 2024-12-01 09:04 | XMS_ITS | Clinical Summary ---
Author Organization [employer] Address [address] [place] [address] [address] [place] [address] Care Team Providers Care Corrosion Engineer Name Role Phone Unavailable Primary Care Provider Unavailabl e Allergies No known active allergies Medications No known medications Active Problems Problem Noted Date Diagnosed Date Dental caries 02/04/2023 Periodontosis 01/27/2023 Encounters Date Type Department Care Team Description 11/04/2024 Telephone [facility] ADULT D[facility]AL [address] [place], [place] [phone] Dakotah Sales DDS from Last 3 Months Social History Tobacco Use Types Packs/Day Years Used Date Smoking Tobacco: Never Passive Smoke Exposure: Never Smokeless Tobacco: Never Tobacco Cessation:Counseling Given: No Alcohol Use Standard Drinks/Week Comments Never 0 (1 standard drink = 0.6 oz pur e alcohol) Sex and Gender Information Value Date Recorded Sex Assigned at Male 09/09/2022 10:40 AM EDT Legal Sex Male 10:40 AM EDT Gender Identity Choose not to disclose 10:40 AM EDT Sexual Orientation Choose not to disclose 2021 10:40 AM EDT Last Filed Vital Signs Vital Sign Reading Time Taken Comments Blood Pressure 120/74 02/04/2023 1:01 PM EDT Pulse 80 02/04/2023 1:01 PM EDT Temperature - - Respiratory Rate - - Oxygen Saturation - - Inhaled Oxygen Concentration - - Weight - - Height - - Body Mass Index - - Plan of Treatment Health Maintenance Due Date Last Done Comments CT Colonography 1950 Colonoscopy 1950 Colorectal Cancer Screening 1950 Dental Oral Exam 1950 Dental Prophylaxis 1950 Dental X-Ray: Bitewings 1950 Depression Screening 1950 FIT DNA/Cologuard 1950 FIT 1950 FOBT 1950 Lipid Panel 1950 SDOH Screening 1950 Sigmoidoscopy 1950 Alcohol/Substance Use Screening 1963 Hepatitis C Screening 1969 Zoster Vaccines (1 of 2) 2001 Pneumococcal Vaccine: 65+ Years (2 of 2 - PCV) 08/04/2018 08/04/2017 Tobacco Screening 02/05/2024 02/04/2023 COVID-19 Vaccine (4 - season) 2024 10/22/2021, 02/17/2021, 01/27/2021 Influenza Vaccine (#1) 2024 , 08/16/2021, 08/23/2020, Additional history exists Dental X-Ray: Full Mouth 01/28/2026 01/27/2023 RSV Patients and Patients Aged 60 years or older (1 - 1-dose 75+ series) 2026 DTaP/Tdap/Td Vaccines (2 - Td or Tdap) 08/18/2027 08/18/2017, 05/07/2013 HIB Vaccines Aged Out No longer eligi ble based on patient's age to complete this topic HPV Vaccines Aged Out No longer eligi ble based on patient's age to complete this topic Hepatitis A Vaccines Aged Out No long er eligible based on patient's age to complete this topic Hepatitis B Vaccines Aged Out No long er eligible based on patient's age to complete this topic IPV Vaccines Aged Out No longer eligi ble based on patient's age to complete this topic Meningococcal Vaccine Aged Out No eula diamond eligible based on patient's age to complete this topic RSV under 20 months Aged Out No longe r eligible based on patient's age to complete this topic Rotavirus Vaccines Aged Out No longer eligible based on patient's age to complete this topic Procedures Procedure Name Priority Date/Time Associated Diagnosis Comments PANORAMIC RADIOGRAPHIC IMAGE Routine 01/27/2023 1:00 PM EDT from Last 3 Months or Most Recently Relevant to Health Maintenance
--- OUTSIDE RECORDS SUMMARY | 2024-12-01 09:04 | XMS_ITS | Clinical Summary ---
Author Organization [employer] Address [address] [place] [address] Care Team Providers Care Supervisor Cytology Name Role Phone Unavailable Primary Care Provider Unavailabl e Encounters Date Type Department Care Team Description 09/07/2024 2:19 PM EDT - 09/07/2024 11:59 PM EDT Hospital Encounter [facility] PET Scan [address] [place] [address] Angel Luis Leos MD Discharge Disposition: Home or Self Care from Last 3 Months Social History Tobacco Use Types Packs/Day Years Used Date Smoking Tobacco: Never Assessed Sex and Gender Information Value Date Recorded Sex Assigned at Not on file Gender Identity Not on file Sexual Orientation Not on file Plan of Treatment Health Maintenance Due Date Last Done Comments DTaP,Tdap,and Td Vaccines (1 - Tdap) 1970 Zoster Vaccines (1 of 2) 2001 Pneumococcal Vaccine: 65+ Ye ars (1 of 1 - PCV) 2016 COVID-19 Vaccine ( - 2023-2 5 season) 2024 Influenza Vaccine (#1) 2024 Abdominal Aortic Aneurysm (A AA) Screen 08/31/2024 Cholesterol Screening (Lipid Panel) 08/31/2024 Colorectal Cancer Screening: Colonoscopy 08/31/2024 Depression Screening 08/31/2024 Falls Risk Assessment 08/31/2024 Hepatitis C Screening 08/31/2024 Social Influencers of Health Screening 08/31/2024 RSV Immunization Patients 60 + Years Old (1 - 1-dose 75+ series) 2026 HIB Vaccines Aged Out No longer eligi [...] on patient's age to complete this topic MMR Vaccines Aged Out No longer eligi ble based on patient's age to complete this topic Meningococcal ACWY Vaccine Aged Out N o longer eligible based on patient's age to complete this topic RSV Immunization Patients Un lukas 20 months Aged Out No longer eligible b ased on patient's age to complete this topic Varicella Vaccines Aged Out No longer eligible based on patient's age to complete this topic Procedures Procedure Name Priority Date/Time Associated Diagnosis Comments PET CT SKULL TO THIGHS Routine 09/08/2024 1:22 PM EDT from Last 3 Months Results * PET CT SKULL TO THIGHS (09/08/2024 1:22 PM EDT) Anatomical Region Laterality Modality Nuclear Medicine 09/07/2024 2:20 PM EDT Narrative 09/08/2024 1:22 PM EDT [facility] Diagnostic Imaging Department [address] [place] [address] Patient: ??KERMIT OVIEDO ?/Age/Sex: 1950 - 73 - M Unit#: ??[id number] ? Location/Status: ??SPDIPET/REG CLI ? Mnemonic/Ordering Site: ??CTSKTTH/SPMAIN Ordering Physician: ??ANGEL LUIS LEOS MD PET CT Skull to Thighs - 09/08/24 - Report Status:Signed INDICATION: Solitary pulmonary nodule, initial treatment strategy Prior relevant studies: None Radiopharmaceutical: 12.8 mCi of F-18 FDG IV. Blood glucose: 131 mg/dl. PROCEDURE: Routine body FDG PET-CT imaging was performed from the skull base to the proximal/mid thighs and reconstructed in axial, coronal, and sagittal planes at the computer workstation with fused data from both the PET imaging study and attenuation correction CT. The CT portion of the examination was done strictly for attenuation correction and is not a true diagnostic CT examination. CTDI: 6.24 mGy FINDINGS: HEAD AND NECK: No abnormal FDG activity. THORAX: No abnormal activity associated with central nodule in the right upper lobe with SUV max of 1.15. ABDOMEN/PELVIS: No abnormal FDG activity. MUSCULOSKELETAL: No abnormal FDG activity. IMPRESSION: Central right upper lobe pulmonary nodule is NOT metabolically active. Consider benign nodule versus carcinoid. Dictating Physician: ??GUANACO CISNEROS MD Electronically Signed by: ??GUANACO CISNEROS MD Dic Date/Time: ??09/08/24 1313 Sign date/Time: ??09/08/24 1322 Procedure Note Guanaco Cisneros MD - 09/11/2024 [facility] Diagnostic Imaging Department [address] [place] [id number] Patient: KERMIT OVIEDO./Age/Sex: 1950 - 73 - M Unit#: [id number] Location/Status: [facility] Mnemonic/Ordering Site: [facility] Ordering Physician: ANGEL LUIS LEOS MD PET CT Skull to Thighs - 09/08/24 - Report Status:Signed INDICATION: Solitary pulmonary nodule, initial treatment strategy Prior relevant studies: None Radiopharmaceutical: 12.8 mCi of F-18 FDG IV. Blood glucose: 131 mg/dl. PROCEDURE: Routine body FDG PET-CT imaging was performed from the skullbase to the proximal/mid thighs and reconstructed in axial, coronal, and sagittalplanes at the computer workstation with fused data from both the PET imagingstudy and attenuation correction CT. The CT portion of the examination was donestrictly for attenuation correction and is not a true diagnostic CT examination.CTDI: 6.24 mGy FINDINGS: HEAD AND NECK: No abnormal FDG activity. THORAX: No abnormal activity associated with central nodule in the rightupper lobe with SUV max of 1.15. ABDOMEN/PELVIS: No abnormal FDG activity. MUSCULOSKELETAL: No abnormal FDG activity. IMPRESSION: Central right upper lobe pulmonary nodule is NOT metabolically active.Consider benign nodule versus carcinoid. Dictating Physician: GUANACO CISNEROS MD Electronically Signed by: GUANACO CISNEROS MD Dic Date/Time: 09/08/24 1313 Sign date/Time: 09/08/24 1322 Angel Luis Leos MD [facility] [place] PROCEDURES from Last 3 Months
--- OUTSIDE RECORDS SUMMARY | 2024-12-01 09:04 | XMS_ITS | Encounter Summary ---
Author Organization [employer] Address [address] [place] [address] Care Team Providers Care Emissions Testing Technician Name Role Phone Unavailable Primary Care Provider Unavailabl e Encounter Details Date Type Department Care Team (Late st Contact Info) Description 11/04/2024 Telephone [facility] ADULT DENTAL [address] [place], [place] [phone] Dakotah Sales DDS [address] [place], [place] [phone] Social History Tobacco Use Types Packs/Day Years Used Date Smoking Tobacco: Never Passive Smoke Exposure: Never Smokeless Tobacco: Never Alcohol Use Standard Drinks/Week Comments Never 0 (1 standard drink = 0.6 oz pur e alcohol) Sex and Gender Information Value Date Recorded Sex Assigned at Male 09/09/2022 10:40 AM EDT Legal Sex Male 10:40 AM EDT Gender Identity Choose not to disclose 10:40 AM EDT Sexual Orientation Choose not to disclose 2021 10:40 AM EDT documented as of this encounter Miscellaneous Notes * Telephone Encounter - Jean-Claude Roberts - 11/04/2024 11:06 AM EST Talked to patient to schedule an appointment for extraction but he doesn't want to schedule the appointment that rather wait and call us back. documented in this encounter Plan of Treatment Not on file documented as of this encounter Visit Diagnoses Not on filedocumented in this encounter
== END 2024-12-01 09:54 | disposition home or self-care (01) ==
PROVIDERS: PCP Nurse Practitioner Family; Visit Provider Nurse Practitioner Family
DX: Z00.00 Encounter for general adult medical examination without abnormal findings (principal); Z13.820 Encounter for screening for osteoporosis

== ENCOUNTER → 2024-12-01 08:47 | Outpatient (BNVA) | payer MEDICARE, OTHER, SELFPAY | PROVIDERS: PCP Nurse Practitioner Family; Visit Provider Nurse Practitioner Family | DX: Z00.00 Encounter for general adult medical examination without abnormal findings (principal); I10 Essential (primary) hypertension; E78.5 Hyperlipidemia, unspecified | CPT/HCPCS: 96127 ==

== ENCOUNTER → 2024-12-13 07:57 | Outpatient (BNV) | payer MEDICARE, OTHER, SELFPAY | PROVIDERS: PCP Nurse Practitioner Family; Visit Provider Radiology Diagnostic Radiology | DX: I25.84 Coronary atherosclerosis due to calcified coronary lesion (principal); R91.8 Other nonspecific abnormal finding of lung field | CPT/HCPCS: 71250 ==

== ENCOUNTER 2024-12-21 09:08 | Outpatient (AMB) | payer MEDICARE, OTHER, SELFPAY ==
--- NOTE | 2024-12-21 09:10 | MHC.OFFVIS ---
Vital Signs 12/21/24 09:11 Height 5 ft 4 in Weight 164 lb 3.91 oz BMI 28.2 BP 122/64 Blood Pressure Location Rt brachial Position Sitting Pulse 78 Pulse Source Doppler Pulse Oximetry (%) 97 Oxygen Delivery Method Room Air Intake Visit Reasons: Pulmonary Nodule Allergies No Known Allergies [No Known Allergies*] Allergy (Verified 12/21/24 09:25) HPI HPI Pulmonary Nodule: Details: 73-year-old gentleman, former approximately 50 pack-year smoker, quit 2018, referred from lung cancer screening program where patient on initial lung cancer screening CT chest was noted to have a 9 mm right upper lobe nodule. Patient had PET-CT that did not demonstrate any significant FDG uptake in the index nodule. He denies any dyspnea on exertion. His pulmonary function test is essentially normal. Patient denies prior personal or family history of lung disease. 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 His 3 months follow-up CT chest demonstrate no significant changes from prior. [facility] Medical History Tremor Cogwheel rigidity HTN (hypertension) Dyslipidemia Anemia Personal history of nicotine dependence Tubular adenoma Elevated ferritin Surgical History History of colonoscopy Hx of removal of neck cyst Family History Father Unknown family medical history Mother Unknown family medical history Brother No problems noted. Brother No problems noted. Sister No problems noted. Son No problems noted. Social History Housing: House Alcohol intake: current Alcohol intake frequency: a few times a week Patient Tobacco Use Status: Former Tobacco user Years Smoked: (onset 15yo, 1ppd x 52yrs, 50pyh - quit 2018) e-Cigarette/Vaping Use: Never Used Second Hand Smoke Exposure: No service: No Current occupational status: retired Cognitive needs: No Hearing needs: No Vision needs: No Review of Systems Const Denies daytime sleepiness, Denies excessive sweating, Denies fatigue, Denies fever(s), Denies lethargy, Denies malaise, Denies night sweats, Denies snoring and Denies weight loss Eyes Denies blurry vision and Denies itchy eyes ENT Denies nasal congestion, Denies post nasal drip, Denies sinus pain, Denies sinus pressure and Denies other ( Thrush) Card Denies chest pain, Denies pedal edema, Denies dyspnea, Denies orthopnea and Denies paroxysmal nocturnal dyspnea Resp Denies cough, Denies hemoptysis, Denies excessive phlegm production, Denies dyspnea, Denies snoring and Denies wheezing GI Denies abdominal pain and Denies heartburn Musc Denies myalgias, Denies arthralgias and Denies joint swelling Skin/Breast Denies rash Neuro Denies memory loss and Denies seizure-like activity Psych Denies abnormal sleep pattern, Denies anxiety and Denies memory loss Endo Denies excessive sweating, Denies fatigue and Denies heat intolerance Mat/Lymph Denies easy bruising Aller/Immun Denies itchy eyes, Denies seasonal rhinorrhea and Denies wheezing Physical Exam Vital Signs: Last Vital Signs Pulse 78 12/21/24 09:11 BP 122/64 12/21/24 09:11 Pulse Ox 97 12/21/24 09:11 Oxygen Delivery Method Room Air 12/21/24 09:11 BMI result Body Mass Index 28.2 Const General: no acute distress and alert Nutritional Appearance: not obese Orientation/consciousness: Other orientation findings ( oriented) HEENT Head: Yes atraumatic Eyes General: appearance normal, both eyes and all related structures Sclerae: sclerae normal EOM: EOMs intact bilaterally Neck Neck: Yes supple Lymphatic: no lymphadenopathy noted Resp Effort & Inspection: normal respiratory effort and no use of accessory muscles Auscultation: clear to auscultation bilaterally Cardio Rate: regular rate Rhythm: regular rhythm Heart sounds: no gallops, no murmurs and no rubs Skin General skin exam: other ( warm) Extrem General: No clubbing, No cyanosis and No edema Assessment & Plan Assessment & Plan (1) Right upper lobe pulmonary nodule: Comment: (10.2 x 9.5 x 8.0 mm RUL pulmonary nodule on 07/16/24 LDCT) Code(s): R91.1 - Solitary pulmonary nodule Category: Medical Plan: No significant changes on 3 months follow-up CT chest. Will repeat CT chest in 6 months. Orders: Orders CT chest wo IV con 08/03/25 R91.1 - Solitary pulmonary nodule Coding Level of Care Code Est Pt Level 3 (86479) Diagnoses Right upper lobe pulmonary nodule R91.1
[2024-12-21 09:11] VITALS: BP 122/64; PULSE 78; O2SAT 97; BMI 28.2
== END 2024-12-21 09:31 | disposition home or self-care (01) ==
PROVIDERS: PCP Nurse Practitioner Family; Visit Provider Internal Medicine Pulmonary Disease
DX: R91.1 Solitary pulmonary nodule (principal)
CPT/HCPCS: 99213

== ENCOUNTER → 2024-12-21 09:08 | Outpatient (BNVA) | payer MEDICARE, OTHER, SELFPAY | PROVIDERS: PCP Nurse Practitioner Family; Visit Provider Internal Medicine Pulmonary Disease | DX: R91.1 Solitary pulmonary nodule (principal) | CPT/HCPCS: 99212 ==

== ENCOUNTER 2025-01-04 08:09 | Outpatient (AMB) | payer MEDICARE, OTHER, SELFPAY ==
--- NOTE | 2025-01-04 08:17 | MHC.OFFVIS ---
Vital Signs 01/04/25 08:18 Height 5 ft 4 in Weight 164 lb BMI 28.1 BP 122/80 Blood Pressure Location Rt brachial Pulse 71 Pulse Source Pulse Oximeter Pulse Oximetry (%) 97 Oxygen Delivery Method Room Air Intake Visit Reasons: INP-Tremors Intake Note: Patient referred by Dr. Flores for tremors Allergies No Known Allergies [No Known Allergies*] Allergy (Verified 01/04/25 08:19) HPI Comments Details: 74y/o Right handed male comes for evaluation and management of tremors. 2 years he started noticing tremors in both hands with action and posture. It has progressed and has difficulty with fine motor coordination He also has strong family h/o tremors in his father, sister and brother. He drinks about 1-4 drinks a week- has not noticed any change in tremors with alcohol. Eating is ok But has trouble drinking- uses both hands Handwriting- severely affected Dressing - slower Gait- normal PFSH Medical History Tremor Cogwheel rigidity HTN (hypertension) Dyslipidemia Anemia Personal history of nicotine dependence Tubular adenoma Elevated ferritin Surgical History History of colonoscopy Hx of removal of neck cyst Family History Father Unknown family medical history Benign familial tremor Mother Unknown family medical history Brother Benign familial tremor Brother No problems noted. Sister Benign familial tremor Son No problems noted. Social History Housing: House Alcohol intake: current Alcohol intake frequency: a few times a week Patient Tobacco Use Status: Former Tobacco user Years Smoked: (onset 15yo, 1ppd x 52yrs, 50pyh - quit 2017) e-Cigarette/Vaping Use: Never Used Second Hand Smoke Exposure: No service: No Current occupational status: retired Cognitive needs: No Hearing needs: No Vision needs: No Physical Exam Vital Signs: Last Vital Signs Pulse 71 01/04/25 08:18 BP 122/80 01/04/25 08:18 Pulse Ox 97 01/04/25 08:18 Oxygen Delivery Method Room Air 01/04/25 08:18 BMI result Body Mass Index 28.1 Const General: cooperative, healthy appearing, comfortable and no acute distress Nutritional Appearance: average body habitus Orientation/consciousness: patient oriented x3 Limitations: no limitations Eyes Pupils: Equal, round and reactive pupils present Neuro Other: Mild head tremors and voice tremors UE- mary alice action , postural, wing betaing tremors R>L - moderate Archimedes spiral- was able to draw with tremors Handwriting- tremors, no micrographia Tone normal FFM and foot taps - mildly decreased Gait- normal General: patient oriented x3, gait normal, tone normal, moves all extremities and no focal motor deficits Cranial nerves: Yes Facial sensation intact/muscles of mastication intact, Yes Equal, round and reactive pupils present, Yes Bilaterally intact EOM present, Yes Nystagmus not present, Yes Normal facial strength present, Yes Midline tongue present, Yes Symmetric palate elevation present, Yes Ability to bilaterally rotate head present and Yes Ability to bilaterally elevate shoulders present Cognition (Neuro): normal cognition Motor exam (neuro): 5/5 motor strength present throughout and Normal motor muscle tone present throughout Deep tendon reflexes (DTR's): Right triceps reflex intensity grade: 2+, Left triceps reflex intensity grade: 2+, Rt Biceps (C5, C6): 2+, Left biceps reflex intensity grade: 2+, Right brachioradialis reflex intensity grade: 2+, Left brachioradialis reflex intensity grade: 2+, Right patellar reflex intensity grade: 2+ and Left patellar reflex intensity grade: 2+ Coordination: [id number] test normal Assessment & Plan Assessment & Plan (1) Familial tremor: Comment: moderate Code(s): G25.0 - Essential tremor Category: Medical Plan MRI brain to r/o structural causes I will trial him on propranolol 10mg bid to manage tremors side effects discussed in detail He declines OT Orders: Orders MR head/brain wo con Today G25.0 - Essential tremor Medications: New propranolol 10 mg PO BID 60 tabs 6RF Coding Level of Care Code New Pt Level 4 (64344) Diagnoses Familial tremor G25.0
[2025-01-04 08:18] VITALS: BP 122/80; PULSE 71; O2SAT 97; BMI 28.1
--- OUTSIDE RECORDS SUMMARY | 2025-01-04 08:22 | XMS_ITS | Clinical Summary ---
Author Organization [employer] Address [address] [place] [address] [address] [place] [address] Care Team Providers Care Spike Maker Name Role Phone Unavailable Primary Care Provider Unavailabl e Allergies No known active allergies Medications No known medications Active Problems Problem Noted Date Diagnosed Date Dental caries 02/04/2023 Periodontosis 01/27/2023 Encounters Date Type Department Care Team Description 11/04/2024 Telephone [facility] [address], [place] [phone] Dakotah Sales DDS from Last 3 Months [...] Vaccines (1 of 2) 2001 Pneumococcal Vaccine: 50+ Years (2 of 2 - PCV) 08/04/2018 [...]
--- OUTSIDE RECORDS SUMMARY | 2025-01-04 08:22 | XMS_ITS | Clinical Summary ---
Author Organization [employer] Address [address] [place] [address] Care Team Providers Care Meat Stuffer Name Role Phone Unavailable Primary Care Provider Unavailabl e Social History Tobacco Use Types Packs/Day Years Used Date Smoking Tobacco: Never Assessed Sex and Gender Information Value Date Recorded Sex Assigned at Not on file Legal Sex Male 3:21 PM EDT Gender Identity Not on file Sexual Orientation Not on file Plan of Treatment Health Maintenance Due Date Last Done Comments DTaP,Tdap,and Td Vaccines (1 - Tdap) 1970 Pneumococcal Vaccine: 50+ Ye ars (1 of 1 - PCV) 2001 Zoster Vaccines (1 of 2) 2001 COVID-19 Vaccine (2023-2 5 season) 2024 Influenza Vaccine (#1) 2024 [...] patient's age to complete this topic Meningococcal B Vacine Aged Out No lo nger eligible based on patient's age to complete this topic RSV Immunization Patients Un lukas 20 months Aged Out No longer eligible b ased on patient's age to complete this topic Varicella Vaccines Aged Out No longer eligible based on patient's age to complete this topic
== END 2025-01-04 08:56 | disposition home or self-care (01) ==
PROVIDERS: PCP Nurse Practitioner Family; Visit Provider Psychiatry & Neurology Neurology
DX: G25.0 Essential tremor (principal)
CPT/HCPCS: 99204

== ENCOUNTER → 2025-01-04 08:09 | Outpatient (BNVA) | payer MEDICARE, OTHER, SELFPAY | PROVIDERS: PCP Nurse Practitioner Family; Visit Provider Psychiatry & Neurology Neurology | DX: G25.0 Essential tremor (principal) | CPT/HCPCS: 99202 ==

== ENCOUNTER → 2025-01-11 07:45 | Outpatient (BNV) | payer MEDICARE, OTHER, SELFPAY | PROVIDERS: PCP Nurse Practitioner Family; Visit Provider Radiology Diagnostic Radiology | DX: G25.0 Essential tremor (principal) | CPT/HCPCS: 70551 ==

== ENCOUNTER 2025-01-11 07:54 | Outpatient (REF) | payer MEDICARE, OTHER, SELFPAY ==
--- NOTE | ~2025-01-11 | MR_ITS ---
EXAMINATION: MR BRAIN WITHOUT CONTRAST CLINICAL INFORMATION: Essential tremor COMPARISON: None available. TECHNIQUE: MRI of the brain was obtained using routine sequences without contrast. FINDINGS: There is bilateral symmetric susceptibility signal within the substantia nigra, absent swallow tail sign. No restricted diffusion. No acute intracranial hemorrhage, mass effect, midline shift, hydrocephalus or herniation. Hargrove-white matter differentiation is normal. Flow-void signal within the main cerebral vessels is normal. Sellar/suprasellar region is normal. Craniocervical junction is intact and normal. MR/MR head/brain wo con IMPRESSION: Concerning Parkinson's disease in the correct clinical settings. No acute brain abnormality. Electronically signed by: Jamie Erickson MD 01/11/2025 10:51 AM EST
--- OUTSIDE RECORDS SUMMARY | 2025-01-11 08:07 | XMS_ITS | Clinical Summary ---
Author Organization [facility] Address [address] [place] [address] Care Team Providers Care Phlebotomy Lab Assistant Name Role Phone Unavailable Primary Care Provider [...]
--- OUTSIDE RECORDS SUMMARY | 2025-01-11 08:07 | XMS_ITS | Clinical Summary ---
Author Organization [employer] Address [address] [place] [address] [address] [place] [address] Care Team Providers Care Form Tamping Machine Operator Name Role Phone Unavailable Primary Care Provider Unavailabl e Allergies No known active allergies Medications No known medications Active Problems Problem Noted Date Diagnosed Date Dental caries 02/04/2023 Periodontosis 01/27/2023 Encounters Date Type Department Care Team Description 11/04/[address] [facility] [address], [place] [phone] Dakotah Sales DDS from Last 3 Months [...]
== END 2025-01-11 07:55 | disposition home or self-care (01) ==
LOC: HO.MRI 07:54
PROVIDERS: PCP Nurse Practitioner Family; Visit Provider Psychiatry & Neurology Neurology
DX: G25.0 Essential tremor (principal)
CPT/HCPCS: 70551

== ENCOUNTER 2025-03-02 08:00 | Outpatient (REF) | payer MEDICARE, OTHER, SELFPAY ==
--- NOTE | ~2025-03-02 | MM_ITS ---
EXAMINATION: DXA BONE DENSITY AXIAL HISTORY: Z13.820 - Encounter for screening for osteoporosis TECHNIQUE: Rekoo Dual energy absorptiometry (DEXA) of the lumbar spine, total left hip, and femoral neck was performed. COMPARISON: There are no prior studies for comparison. FINDINGS: The bone mineral density of the lumbar spine is 1.021 with a T-score of -1.7, and a Z-score of -0.9. This is indicative of osteopenia. The bone mineral density of the left total hip is 0.933 with a T-score of -1.2, and a Z-score of -0.2. This is indicative of osteopenia. The bone mineral density of the left femoral neck is 0.913 with a T-score of -1.2, and a Z-score of 0.2. This is indicative of osteopenia. MM/XR DEXA axial skeleton IMPRESSION: Based on bone mineral density, and according to World Health Organization (WHO) criteria, the diagnosis is consistent with osteopenia. All bone density values are in grams per centimeter squared (g/cm2). Statistically, 68% of repeat scans fall within 1 SD (+/- 0.010 g/cm2 for AP spine L1-L4) and 1 SD (+/- 0.012 g/cm2 for femur total) FRAX is a trademark of the [employer] Met[employer] Disease, a World Health Organization (WHO) Collaborating Center. Electronically signed by: Emerson Avila MD 03/04/2025 07:25 AM EDT
--- OUTSIDE RECORDS SUMMARY | 2025-03-02 08:05 | XMS_ITS | Clinical Summary ---
Author Organization [employer] Address [address] [place] [address] [address] [place] [address] Care Team Providers Care Job Estimator Name Role Phone Unavailable Primary Care Provider Unavailabl e Allergies No known active allergies Medications No known medications Active Problems Problem Noted Date Diagnosed Date Dental caries 02/04/2023 Periodontosis 01/27/2023 Social History Tobacco Use Types Packs/Day Years [...] 10/22/2021, 02/17/2021, 01/27/2021 Influenza Vaccine (#1) 2024 2, 08/16/2021, 08/23/2020, Additional history exists Dental X-Ray: [...]
--- OUTSIDE RECORDS SUMMARY | 2025-03-02 08:05 | XMS_ITS | Clinical Summary ---
Author Organization [facility] Address [address] [place] [address] Care Team Providers Care Protective Signal Installer Helper Name Role Phone Unavailable Primary Care Provider [...] Vaccines (1 of 2) 2001 COVID-19 Vaccine ( - 2023-2 5 season) 2024 Abdominal Aortic Aneurysm (A AA) Screen 08/31/2024 Cholesterol Screening (Lipid Panel) 08/31/2024 Colorectal Cancer Screening: Colonoscopy 08/31/2024 Depression Screening 08/31/2024 Falls Risk Assessment 08/31/2024 Hepatitis C Screening 08/31/2024 Social Influencers of Health Screening 08/31/2024 Influenza Vaccine (Season Ended) 2025 RSV Immunization Adult Patie nts (1 - 1-dose 75+ series) 2026 HIB [...] age to complete this topic Meningococcal B Vaccine Aged Out No l onger eligible based on patient's age to complete this topic RSV Immunization Patients Un lukas 20 months Aged Out No longer eligible b ased on patient's age to complete this topic Varicella Vaccines Aged Out No longer eligible based on patient's age to complete this topic
== END 2025-03-02 08:01 | disposition home or self-care (01) ==
LOC: HO.MAMMO 08:00
PROVIDERS: PCP Nurse Practitioner Family; Visit Provider Nurse Practitioner Family
DX: Z13.820 Encounter for screening for osteoporosis (principal); E55.9 Vitamin D deficiency, unspecified; Z87.891 Personal history of nicotine dependence; M85.89 Other specified disorders of bone density and structure, multiple sites
CPT/HCPCS: 77080

== ENCOUNTER → 2025-03-02 08:15 | Outpatient (BNV) | payer MEDICARE, OTHER, SELFPAY | PROVIDERS: PCP Nurse Practitioner Family; Visit Provider Radiology Diagnostic Radiology | DX: Z13.820 Encounter for screening for osteoporosis (principal); M85.89 Other specified disorders of bone density and structure, multiple sites | CPT/HCPCS: 77080 ==

== ENCOUNTER 2025-03-15 14:03 | Outpatient (AMB) | payer MEDICARE, OTHER, SELFPAY ==
--- NOTE | 2025-03-15 14:10 | MHC.OFFVIS ---
Vital Signs 03/15/25 14:12 Height 5 ft 4 in Weight 164 lb BMI 28.1 Pulse 65 Pulse Source Pulse Oximeter Pulse Oximetry (%) 97 Oxygen Delivery Method Room Air Intake Visit Reasons: follow up Tremors( per MD) Intake Note: Patient presents for follow up MRI done 02/01/25 and med trial propranolol Allergies No Known Allergies [No Known Allergies*] Allergy (Verified 03/15/25 14:12) Medication List - Last Reconciled 03/15/25 by Monica Blue MD amlodipine 10 mg PO DAILY cholecalciferol (vitamin D3) 25 mcg PO DAILY 90 days lisinopril 20 mg PO DAILY propranolol 10 mg PO BID rosuvastatin 10 mg PO DAILY HPI Comments Details: 74y/o Right handed male comes for follow up and management of tremors. He noticed improvement with propranolol 10mg bid . Nos kim effects History from initial visit- 2 years he started noticing tremors in both hands with action and posture. It has progressed and has difficulty with fine motor coordination He also has strong family h/o tremors in his father, sister and brother. He drinks about 1-4 drinks a week- has not noticed any change in tremors with alcohol. Eating is ok But has trouble drinking- uses both hands Handwriting- severely affected Dressing - slower Gait- normal PFSH Medical History Familial tremor Tremor Cogwheel rigidity HTN (hypertension) Dyslipidemia Anemia Personal history of nicotine dependence Tubular adenoma Elevated ferritin Surgical History History of colonoscopy Hx of removal of neck cyst Family History Father Unknown family medical history Benign familial tremor Mother Unknown family medical history Brother Benign familial tremor Brother No problems noted. Sister Benign familial tremor Son No problems noted. Social History Housing: House Alcohol intake: current Alcohol intake frequency: a few times a week Patient Tobacco Use Status: Former Tobacco user Years Smoked: (onset 15yo, 1ppd x 52yrs, 50pyh - quit 2017) e-Cigarette/Vaping Use: Never Used Second Hand Smoke Exposure: No service: No Current occupational status: retired Cognitive needs: No Hearing needs: No Vision needs: No Physical Exam Vital Signs: Last Vital Signs Pulse 65 03/15/25 14:12 Pulse Ox 97 03/15/25 14:12 Oxygen Delivery Method Room Air 03/15/25 14:12 BMI result Body Mass Index 28.1 Const General: cooperative, healthy appearing, comfortable and no acute distress Nutritional Appearance: average body habitus Orientation/consciousness: patient oriented x3 Limitations: no limitations Eyes Pupils: Equal, round and reactive pupils present Neuro Other: Mild head tremors and voice tremors UE- mary alice action , postural, wing betaing tremors R>L - milder Archimedes spiral- was able to draw with tremors Handwriting- tremors, no micrographia Tone normal FFM and foot taps - mildly decreased Gait- decreased arm swing on right UE with ? rest tremors General: patient oriented x3, gait normal, tone normal, moves all extremities and no focal motor deficits Cranial nerves: Yes Facial sensation intact/muscles of mastication intact, Yes Equal, round and reactive pupils present, Yes Bilaterally intact EOM present, Yes Nystagmus not present, Yes Normal facial strength present, Yes Midline tongue present, Yes Symmetric palate elevation present, Yes Ability to bilaterally rotate head present and Yes Ability to bilaterally elevate shoulders present Cognition (Neuro): normal cognition Motor exam (neuro): 5/5 motor strength present throughout and Normal motor muscle tone present throughout Assessment & Plan Assessment & Plan (1) Familial tremor: Comment: moderate Code(s): G25.0 - Essential tremor Category: Medical Plan MRI brain reviewed Increase propranolol 20mg bid to manage tremors side effects discussed in detail He declines OT Medications: Changed From propranolol 10 mg PO BID 60 tabs 6RF To propranolol 20 mg (2 x 10 mg) PO BID 120 tabs 6RF Coding Level of Care Code Est Pt Level 4 (17464) Complex EM visit Add On G2211 Diagnoses Familial tremor G25.0
[2025-03-15 14:12] VITALS: PULSE 65; O2SAT 97; BMI 28.1
--- OUTSIDE RECORDS SUMMARY | 2025-03-15 15:23 | XMS_ITS | Clinical Summary ---
Author Organization [employer] Address [address] [place] [address] [address] [place] [address] Care Team Providers Care Label Drier Name Role Phone Unavailable Primary Care Provider [...]
--- OUTSIDE RECORDS SUMMARY | 2025-03-15 15:23 | XMS_ITS | Clinical Summary ---
Author Organization [employer] Address [address] [place] [address] Care Team Providers Care Laboratory Geneticist Name Role Phone Unavailable Primary Care Provider [...] 2001 COVID-19 Vaccine (2023-2 5 season) 2024 Abdominal Aortic Aneurysm (A [...]
== END 2025-03-15 14:42 | disposition home or self-care (01) ==
LOC: HO.HSMS 14:05
PROVIDERS: PCP Nurse Practitioner Family; Visit Provider Psychiatry & Neurology Neurology
DX: G25.0 Essential tremor (principal)
CPT/HCPCS: 99214; G2211

== ENCOUNTER → 2025-03-15 14:03 | Outpatient (BNVA) | payer MEDICARE, OTHER, SELFPAY | PROVIDERS: PCP Nurse Practitioner Family; Visit Provider Psychiatry & Neurology Neurology | DX: G25.0 Essential tremor (principal) | CPT/HCPCS: 99212 ==

== ENCOUNTER 2025-06-01 16:15 | Outpatient (REF) | payer MEDICARE, OTHER, SELFPAY ==
--- NOTE | ~2025-06-01 | CT_ITS ---
EXAMINATION: CT CHEST WITHOUT CONTRAST CLINICAL INFORMATION: R91.1 - Solitary pulmonary nodule COMPARISON: December 13, 2024 TECHNIQUE: Multidetector volumetric CT imaging of the chest was done. Axial MIP volume rendering provided. Sagittal and coronal reformatted images were obtained. This CT examination was performed using dose optimization techniques as appropriate, variously including the following: *Automated exposure control *Adjustment of mA and/or kV according to patient size (this includes techniques or standardized protocols for targeted exams where dose is matched to indication/reason for exam; i.e. extremities or head) *Use of iterative reconstruction technique DLP: 148 mGY*cm FINDINGS: LUNGS: Axial Series CT #4 Image 33: Anterior segment left upper lobe nodule measures 2 mm, previously 3 mm. Image 44: A 3 mm solid pulmonary nodule in the anterior segment of the right upper lobe is stable. Image 63: Anterior segment right upper lobe solid pulmonary nodule measuring 10 x 10 mm contains punctate calcium in the periphery, central fat density, and intermixed soft tissue and fluid density is consistent with a pulmonary hamartoma. MEDIASTINUM: Unremarkable CORONARY ARTERY CALCIFICATION: Three-vessel calcification is present. PLEURA: There is no pleural effusion. No pleural mass or thickening. AXILLA: No lymphadenopathy. UPPER ABDOMEN: Multifocal coarse calcifications are present in the deep portion of the pancreatic head, neck, and body. OSSEOUS STRUCTURES: Multilevel degenerative disc disease without evidence of pyrophosphate deposition within multiple disks. CT/CT chest wo IV con IMPRESSION: 10 mm nodule in the anterior segment right upper lobe has features diagnostic of a benign pulmonary hamartoma) no additional follow-up. 2 other small solid pulmonary nodules, as described above. They are stable after 4.5 months. No further follow-up is indicated for low risk individuals. If the patient falls into high risk category, ct can be performed December 2025. High risk patients includes those with a history of smoking, first-degree relative with lung cancer, or exposure to uranium, radon, or asbestos. Changes related to chronic pancreatitis. Fleischner guidelines were followed. Electronically signed by: Bridger Paez MD 06/01/2025 06:09 PM EDT
--- OUTSIDE RECORDS SUMMARY | 2025-06-01 16:18 | XMS_ITS | Clinical Summary ---
Author Organization [employer] Address [address] [place] [address] [address] [place] [address] Care Team Providers Care Security Flex Officer Name Role Phone Unavailable Primary Care Provider [...] 2024 10/22/2021, 02/17/2021, 01/27/2021 Influenza Vaccine (#1) 2025 2, 08/16/2021, 08/23/2020, Additional history exists Dental [...]
--- OUTSIDE RECORDS SUMMARY | 2025-06-01 16:18 | XMS_ITS | Patient Health Record ---
Author Organization [facility] Address [address] [place] [address] Care Team Providers Care Orange Peel Operator Name Role Phone Uday Costa M.D. Primary Care Provider Sakina Mann Huitron Jr Unavailable Reason For Referral No Information Medications Medication SIG (Take, Route, Frequency, Duration) Notes Start Date End Date Status Colyte with Flavor Packs 240 GM As directed Orally Over the specified time. for 1 day(s) Active amLODIPine Besylate 10 MG 1 tablet Orally Once a day Active Immunizations Vaccine Route Administration Date Status Comme nts Flu vaccine no Preserv 3 and > Unknown 09/02/2017 Admin istered Social History Tobacco Use: Social History Observation Description Date Details (start date - stop date) Former Smoker NA - NA Tobacco Use/Smoking Question Answer Notes Patient is a former smoker How long has it been since you last smoked? 6-12 months Alcohol Screen Question Answer Notes Did you have a drink contain ing alcohol in the past year? Yes How often did you have a dri nk containing alcohol in the past year? 2 to 3 times a week (3 points) How many drinks did you have on a typical day when you were drinking in the past year? 1 or 2 drinks (0 point) How often did you have 6 or more drinks on one occasion in the past year? Never (0 point) Points 3 Interpretation Negative Problems Problem Type SNOMED Code ICD Code Onset Dates Problem Status W/U Status Risk Notes Problem [id number] Colon cancer screening (Z12.11) Active confirmed Plan Of Treatment Future Test Test Name Order Date COLONOSCOPY 12/19/2017 Insurance Providers Payer Name Payer Address Payer Phone Subscriber Number Group Number Insured Name Patient Relationship to Insured Coverage Start Date Coverage End Date MEDICARE OF [place] [address] [place] [id number] KERMIT TONEY Self - patient is the insured Medical (General) History Medical History History ICD Code Denies [place],DM,CVA,Lung disease,renal dise ase hypertension Surgical History Surgery Date(Month/Year) abscess removal from neck 2017 cyst removal 2017
--- OUTSIDE RECORDS SUMMARY | 2025-06-01 16:18 | XMS_ITS | Clinical Summary ---
Author Organization [facility] Address [address] [place] [address] Care Team Providers Care Fraud Analyst Name Role Phone Unavailable Primary Care Provider [...] Panel) 08/31/2024 Colorectal Cancer Screening: Colonoscopy 08/31/2024 Falls Risk Assessment 08/31/2024 Hepatitis C Screening 08/31/2024 Social Influencers of Health Screening 08/31/2024 Depression Screening 11/10/2024 Influenza Vaccine (#1) 2025 RSV Immunization Adult Patie nts (1 [...]
== END 2025-06-01 16:16 | disposition home or self-care (01) ==
LOC: HO.CT 16:15
PROVIDERS: PCP Nurse Practitioner Family; Visit Provider Internal Medicine Pulmonary Disease
DX: R91.1 Solitary pulmonary nodule (principal)
CPT/HCPCS: 71250

== ENCOUNTER → 2025-06-01 16:17 | Outpatient (BNV) | payer MEDICARE, OTHER, SELFPAY | PROVIDERS: PCP Nurse Practitioner Family; Visit Provider Radiology Diagnostic Radiology | DX: R91.8 Other nonspecific abnormal finding of lung field (principal) | CPT/HCPCS: 71250 ==

== ENCOUNTER 2025-07-06 10:21 | Outpatient (AMB) | payer MEDICARE, OTHER, SELFPAY ==
--- NOTE | 2025-07-06 10:23 | A.OFFPC_ITS ---
Vital Signs 07/06/25 10:27 Height 5 ft 4 in Weight 166 lb BMI 28.5 BP 140/72 H Blood Pressure Location Lt brachial Position Sitting Respiration 16 Pulse 63 Pulse Source Pulse Oximeter Temp 98.1 F Temp Source Oral Pulse Oximetry (%) 96 Oxygen Delivery Method Room Air Intake Visit Reasons: F/U care Merchandise Presentation Associate Required: No Accompanied by: Self / Same As Patient Allergies No Known Allergies (No Known Allergies*) Allergy (Verified 07/06/25 11:15) Medication List - Last Reconciled 07/06/25 by Lux Flores, [facility] amlodipine 10 mg PO DAILY cholecalciferol (vitamin D3) 25 mcg PO DAILY 90 days lisinopril 20 mg PO DAILY propranolol 20 mg (2 x 10 mg) PO BID rosuvastatin 10 mg PO DAILY Tobacco use date assessed: 07/06/25 Fall risk assessment: No Falls in past year Last assessed Fall Risk: 07/06/25 Dental Screening Dental Screen Date: 07/06/25 Did you have a dental visit in the last 12 months?: Yes Did you have a dental problem in the last 6 months where you did not have access to dental care?: No Was dental information given to patient?: Patient has dentist HPI F/U care HPI Details Chief Complaint The patient presents for a follow-up for hypertension management. History of Present Illness The patient is a 74-year-old male presenting with a follow-up for hypertension. He denies experiencing any chest pain, increased shortness of breath, headache, or blurred vision. The patient has a history of pulmonary nodules for which he follows up with a electronic industrial controls mechanic. There is no mention of any new symptoms or changes related to this condition. During the examination, cerumen impaction was noted bilaterally, preventing visualization of the tympanic membranes. An ear lavage is planned to address this issue. Social History Health Maintenance Review of Systems - Cardiovascular: Denies chest pain - Respiratory: Denies increased shortnes s of breath - Neurological: Denies headache, blurred vision Physical Exam General: Cooperative, healthy appearing, comfortable, no acute distress and well developed Orientation: Patient oriented x3 Limitations: No limitations Head: Normal to inspection Ears: Cerumen impaction noted bilaterally extensively. TMs were unable to be seen due to the cerumen. Nose: Normal external nose present Face and sinus: Normal facial exam Eyes: Appearance normal, both eyes and all related structures Neck: Normal visual inspection and Yes full ROM Respiratory: Normal respiratory effort and able to speak in complete sentences. Clear to auscultation bilaterally Cardiovascular: Regular rate and rhythm. Normal S1 and S2. No carotid bruits noted. GI: Normal to inspection. Soft to palpation and nontender Skin: No rashes or lesions noted Neuro: Patient oriented x3 Extremities: Normal to inspection Results 1. Essential Hypertension The patient is here for a follow-up on hypertension management. He denies any symptoms such as chest pain, increased shortness of breath, headache, or blurred vision, indicating stable control of blood pressure. 2. Pulmonary Nodules The patient continues to follow up with a electronic industrial controls mechanic for pulmonary nodules. No new symptoms or changes have been reported. 3. Cerumen Impaction Cerumen impaction was noted bilaterally during the examination, obstructing the view of the tympanic membranes. An ear lavage is planned to clear the cerumen. Discussion Notes encouraged pt to get labs drawn in the near future Patient Instructions [facility] Medical History Familial tremor Tremor Cogwheel rigidity HTN (hypertension) Dyslipidemia Anemia Personal history of nicotine dependence Tubular adenoma Elevated ferritin Surgical History History of colonoscopy Hx of removal of neck cyst Family History Father Unknown family medical history Benign familial tremor Mother Unknown family medical history Brother Benign familial tremor Brother No problems noted. Sister Benign familial tremor Son No problems noted. Social History Housing: House Alcohol intake: current Alcohol intake frequency: a few times a week Patient Tobacco Use Status: Former Tobacco user Years Smoked: (onset 15yo, 1ppd x 52yrs, 50pyh - quit 2018) e-Cigarette/Vaping Use: Never Used Second Hand Smoke Exposure: No service: No Current occupational status: retired Cognitive needs: No Hearing needs: No Vision needs: No Questionnaire Thrive Questionnaire Date Thrive assessed: 07/06/25 I am a: Patient What is your living situation today?: I have a steady place to live Within the past 12 months, did the food you bought not last and you didn't have the money to get more?: Never true Within the past 12 months, did you worry whether your food would run out before you got money to buy more?: Never true Do you have trouble paying for medicines?: No Do you have trouble getting transportation to medical appointments?: No Do you have trouble paying your heating and electricity bill?: No Do you have trouble taking care of your child, family member or friend?: No Do you have trouble with day-to-day activities such as bathing, preparing meals, shopping, managing finances, etc.?: No Are you currently unemployed and looking for a job?: No Are you interested in more education?: No Please select the resources that you would like help with: None Currently or been in a relationship where the following occur: No concerns reported THRIVE Score: 0 AUDIT C Alcohol Use Questionnaire (AUDIT-C) 1. How often do you have a drink containing alcohol?: 2-4 times a month 2. How many drinks containing alcohol do you have on a typical day when you are drinking?: 1 or 2 3. How often do you have six or more drinks on one occasion?: Never Total Score: 2 CESAR-7 AMB Questionnaire CESAR-7 Date CESAR - 7 assessed: 05/31/24 Feeling nervous, anxious, or on edge: 0 = Not at all Not being able to stop or control worryin = Not at all Worrying too much about different things: 0 = Not at all Trouble relaxin = Not at all Being so restless that it is hard to sit still: 0 = Not at all Becoming easily annoyed or irritable: 0 = Not at all Feeling afraid as if something awful might happen: 0 = Not at all Total CESAR-7 score (0-4 normal; 5-9 mild; 10-14 moderate; 15-21 severe): 0 Source: Developed by Drs. Emerson Finley, Felicia Dyer, Tin Mckeon and colleagues, with an educational brain from [employer]. Physical exam (Primary Care) Vital Signs: Last Vital Signs Temp 98.1 F 07/06/25 10:27 Pulse 63 07/06/25 10:27 Resp 16 07/06/25 10:27 BP 140/72 H 07/06/25 10:27 Pulse Ox 96 07/06/25 10:27 Oxygen Delivery Method Room Air 07/06/25 10:27 BMI result Body Mass Index 28.5 Tobacco/Smoking Status: Tobacco use Status Tobacco use date assessed 07/06/25 07/06/25 10:26 Patient Tobacco Use Status Former Tobacco user 07/06/25 10:26 e-Cigarette/Vaping Use Never Used 07/06/25 10:26 Thrive Assessment: Date of Thrive Assessment Date Thrive assessed 07/06/25 07/06/25 10:26 Currently or been in a relationship where the following occur: No concerns reported Office Procedures Cerumen Removal From which ear canal was the cerumen removed: bilateral Removal: irrigation and cerumen loop/spoon Notes: patient tolerated procedure well, no complications and ear canal clear [id number] Wax Removal by Spoon/Curette Coding Level of Care Code Est Pt Level 3 (58284) Diagnoses HTN (hypertension) I10 Cerumen impaction H61.20 Screening PSA (prostate specific antigen) Z12.5 CPT Codes Office Procedure - CPT: [id number] Wax Removal by Spoon/Curette ([id number]) Assessment & Plan Assessment & Plan (1) HTN (hypertension): Code(s): I10 - Essential (primary) hypertension Category: Medical (2) Cerumen impaction: Code(s): H61.20 - Impacted cerumen, unspecified ear Category: Medical (3) Screening PSA (prostate specific antigen): Code(s): Z12.5 - Encounter for screening for malignant neoplasm of prostate Category: Medical Plan . Orders: Orders Comprehensive Yoder. Panel Fast Today I10 - Essential (primary) hypertension Lipid Panel Today I10 - Essential (primary) hypertension Prostate Specific Antigen Scr Today Z12.5 - Encounter for screening for malignant neoplasm of prostate Complete Blood Count Auto Diff Today I10 - Essential (primary) hypertension TSH reflex Free T4 Today I10 - Essential (primary) hypertension UA CC w/rflx Micro + Cult Today I10 - Essential (primary) hypertension
[2025-07-06 10:27] VITALS: BP 140/72; PULSE 63; RESP 16; TEMP 36.7; O2SAT 96; BMI 28.5
--- OUTSIDE RECORDS SUMMARY | 2025-07-06 11:12 | XMS_ITS | Patient Health Record ---
Author Organization [facility] Address [address] [place] [id number] Care Team Providers Care Superintendent Track Name Role Phone Uday Costa M.D. Primary Care Provider Sakina Mann Hutiron Jr Unavailable Reason For Referral No Information [...] Problem Status W/U Status Risk Notes Problem [id number] Colon cancer screening (Z12.11) Active confirmed Plan Of Treatment Future Test Test Name Order Date COLONOSCOPY 12/19/2017 Insurance Providers Payer Name Payer Address Payer Phone Subscriber Number Group Number Insured Name Patient Relationship to Insured Coverage Start Date Coverage End Date MED[place]ARE OF [place] [address] [place] [address] [id number] KERMIT TONEY Self - patient is the insured Medical (General) History Medical History History ICD Code Denies [place],DM,CVA,Lung disease,renal dise ase hypertension Surgical History Surgery Date(Month/Year) abscess removal from neck 2017 cyst removal 2017
--- OUTSIDE RECORDS SUMMARY | 2025-07-06 11:12 | XMS_ITS | Clinical Summary ---
Author Organization [employer] Address [address] [place] [address] [address] [place] [address] Care Team Providers Care Tire Inspector Name Role Phone Unavailable Primary Care Provider [...]
--- OUTSIDE RECORDS SUMMARY | 2025-07-06 11:12 | XMS_ITS | Clinical Summary ---
Author Organization [employer] [facility] Address [address] [place] [address] Care Team Providers Care Art Appraiser Name Role Phone Unavailable Primary Care Provider [...]
== END 2025-07-06 11:13 | disposition home or self-care (01) ==
LOC: HO.HMCC 10:23
PROVIDERS: PCP Nurse Practitioner Family; Visit Provider Nurse Practitioner Family
DX: I10 Essential (primary) hypertension (principal); H61.23 Impacted cerumen, bilateral; Z12.5 Encounter for screening for malignant neoplasm of prostate

== ENCOUNTER → 2025-07-06 10:21 | Outpatient (BNVA) | payer MEDICARE, OTHER, SELFPAY | PROVIDERS: PCP Nurse Practitioner Family; Visit Provider Nurse Practitioner Family | DX: I10 Essential (primary) hypertension (principal); H61.23 Impacted cerumen, bilateral | CPT/HCPCS: 69210; 99212 ==

== ENCOUNTER 2025-07-22 06:16 | Outpatient (REF) | payer MEDICARE, OTHER, SELFPAY ==
--- OUTSIDE RECORDS SUMMARY | 2025-07-22 06:19 | XMS_ITS | Patient Health Record ---
Author Organization [facility] Address [address] [place] [phone] Care Team Providers Care Side Gluer Name Role Phone Uday Costa M.D. Primary [...] Problem Status W/U Status Risk Notes Problem [id number] Colon cancer screening (Z12.11) Active confirmed Plan Of Treatment Future Test Test Name Order Date COLONOSCOPY 12/19/2017 Insurance Providers Payer Name Payer Address Payer Phone Subscriber Number Group Number Insured Name Patient Relationship to Insured Coverage Start Date Coverage End Date [place]ARE OF [place] [address] [place] [address] [id number] KERMIT TONEY Self - patient is the insured Medical (General) History Medical History History ICD Code Denies [place],DM,CVA,Lung disease,renal dise ase hypertension Surgical History Surgery Date(Month/Year) abscess removal from neck 2017 cyst removal 2017
--- OUTSIDE RECORDS SUMMARY | 2025-07-22 06:19 | XMS_ITS | Clinical Summary ---
Author Organization [facility] Address [address] [place] [address] Care Team Providers Care Harness Puller Name Role Phone Unavailable Primary Care Provider [...] 2001 Zoster Vaccines (1 of 2) 2001 Abdominal Aortic Aneurysm (A AA) Screen 08/31/2024 Cholesterol Screening (Lipid Panel) 08/31/2024 Colorectal Cancer Screening: Colonoscopy 08/31/2024 Falls Risk Assessment 08/31/2024 Hepatitis C Screening 08/31/2024 Social Influencers of Health Screening 08/31/2024 Depression Screening 11/10/2024 COVID-19 Vaccine (1 - 2023-2 5 season) 2025 Influenza Vaccine (#1) 2025 RSV Immunization Adult [...]
[2025-07-22 10:36] LABS: MANUAL DIFF FLAG NO
[2025-07-22 10:40] LABS: Hematocrit 38.0 % (42.0-52.0); Hemoglobin 13.5 g/dl (14.0-18.0); Imm Gran Abs Auto 0.02 X10*3/uL (0.00-0.03); Imm Gran Pct Auto 0.3 % (0.0-0.4); Lymphocytes Absolute Auto 2.8 X10*3/uL (1.2-4.9); Mean Corpuscular HGB Conc 35.5 g/dl (31.0-36.0); Mean Corpuscular Hemoglobin 35.0 pg (27.0-33.0); Mean Corpuscular Volume 98.4 fL (80.0-98.0); NRBC Abs Auto 0.000 X10*3/uL (0.0-0.012); NRBC Pct Auto 0.0 /100WBC (0.0-0.2); Platelet Count 220 X10*3/uL (160-400); Red Blood Count 3.86 X10*6/uL (4.60-5.80); White Blood Count 6.7 X10*3/uL (4.8-10.8)
[2025-07-22 11:02] LABS: Appearance Urine Clear; Glucose Urine UA Negative (Negative); PH 6.0 (5.0-9.0); Specific Gravity - Urine 1.020 (1.005-1.025)
[2025-07-22 11:08] LABS: Alanine Aminotransferase 36 U/L (0-40); Albumin Level 4.6 g/dL (3.5-5.0); Alkaline Phosphatase 64 U/L (39-117); Anion Gap 13 (12-20); Aspartate Amino Transferase 40 U/L (5-37); Blood Urea Nitrogen 27 mg/dL (9-16); Calcium 9.0 mg/dL (8.4-10.2); Carbon Dioxide 23 mmol/L (22-29); Chloride 108 mmol/L (96-108); Cholesterol 161 mg/dL (<200); Estimated Glomerular Filt Rate 60; HDL Cholesterol 50 mg/dL (>40); Potassium 5.1 mmol/L (3.3-5.1); Sodium 139 mmol/L (135-145); Total Protein 7.2 g/dL (6.5-8.0); Triglycerides 160 mg/dL (<150)
== END 2025-07-22 06:17 | disposition home or self-care (01) ==
LOC: HO.HMGCLDS 06:16
PROVIDERS: PCP Nurse Practitioner Family; Visit Provider Nurse Practitioner Family
DX: Z12.5 Encounter for screening for malignant neoplasm of prostate (principal); I10 Essential (primary) hypertension
CPT/HCPCS: 36415; 80053; 80061; 81003; 84153; 84443; 85025

== ENCOUNTER 2025-09-15 11:22 | Outpatient (AMB) | payer MEDICARE, OTHER, SELFPAY ==
[2025-09-15 11:24] VITALS: BP 120/70; PULSE 60; O2SAT 96; BMI 28.7
--- NOTE | 2025-09-15 11:24 | A.OFFVIS_ITS ---
Vital Signs 09/15/25 11:24 Height 5 ft 4 in Weight 167 lb BMI 28.7 BP 120/70 Blood Pressure Location Rt brachial Position Sitting Pulse 60 Pulse Source Pulse Oximeter Pulse Oximetry (%) 96 Oxygen Delivery Method Room Air Intake Visit Reasons: follow up Tremors Intake Note: Follow up Moderate Familial tremor Livestock Farm Manager Required: No Accompanied by: Self / Same As Patient Allergies No Known Allergies (No Known Allergies*) Allergy (Verified 09/15/25 11:24) Medication List - Last Reconciled 09/15/25 by Monica Blue MD amlodipine 10 mg PO DAILY cholecalciferol (vitamin D3) 25 mcg PO DAILY 90 days lisinopril 20 mg PO DAILY propranolol 20 mg PO BID rosuvastatin 10 mg PO DAILY HPI Comments Details: 74y/o Right handed male comes for follow up and management of tremors. He noticed improvement with propranolol 20mg bid . 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 It has progressed and has difficulty with fine motor coordination He also has strong family h/o tremors in his father, sister and brother. He drinks about 1-4 drinks a week- has not noticed any change in tremors with alcohol. Eating is ok But has trouble drinking- uses both hands Handwriting- severely affected Dressing - slower Gait- normal [facility] Medical History Familial tremor Tremor Cogwheel rigidity HTN (hypertension) Dyslipidemia Anemia Personal history of nicotine dependence Tubular adenoma Elevated ferritin Surgical History History of colonoscopy Hx of removal of neck cyst Family History Father Unknown family medical history Benign familial tremor Mother Unknown family medical history Brother Benign familial tremor Brother No problems noted. Sister Benign familial tremor Son No problems noted. Social History Housing: House Alcohol intake: current Alcohol intake frequency: a few times a week Patient Tobacco Use Status: Former Tobacco user Years Smoked: (onset 15yo, 1ppd x 52yrs, 50pyh - quit 2018) e-Cigarette/Vaping Use: Never Used Second Hand Smoke Exposure: No service: No Current occupational status: retired Cognitive needs: No Hearing needs: No Vision needs: No Physical Exam Vital Signs: Last Vital Signs Pulse 60 09/15/25 11:24 BP 120/70 09/15/25 11:24 Pulse Ox 96 09/15/25 11:24 Oxygen Delivery Method Room Air 09/15/25 11:24 BMI result Body Mass Index 28.7 Const General: cooperative, healthy appearing, comfortable and no acute distress Nutritional Appearance: average body habitus Orientation/consciousness: patient oriented x3 Limitations: no limitations Eyes Pupils: Equal, round and reactive pupils present Neuro Other: Mild head tremors and voice tremors UE- mary alice action , postural, milder Archimedes spiral- was able to draw with tremors Handwriting- tremors, no micrographia Tone normal FFM and foot taps - mildly decreased Gait- decreased arm swing on right UE General: patient oriented x3, gait normal, tone normal, moves all extremities and no focal motor deficits Cranial nerves: Yes Facial sensation intact/muscles of mastication intact, Yes Equal, round and reactive pupils present, Yes Bilaterally intact EOM present, Yes Nystagmus not present, Yes Normal facial strength present, Yes Midline tongue present, Yes Symmetric palate elevation present, Yes Ability to bilaterally rotate head present and Yes Ability to bilaterally elevate shoulders present Cognition (Neuro): normal cognition Motor exam (neuro): 5/5 motor strength present throughout and Normal motor muscle tone present throughout Assessment & Plan Assessment & Plan (1) Familial tremor: Comment: moderate Code(s): G25.0 - Essential tremor Category: Medical Plan Continue propranolol 20mg bid to manage tremors.Take extra tab as needed side effects discussed in detail He declines OT Medications: Changed From propranolol 20 mg (2 x 10 mg) PO BID 360 tabs 2RF To propranolol 20 mg PO BID 180 tabs 4RF Coding Level of Care Code Est Pt Level 4 (23029) Complex EM visit Add On G2211 Diagnoses Familial tremor G25.0
--- OUTSIDE RECORDS SUMMARY | 2025-09-15 14:12 | XMS_ITS | Clinical Summary ---
Author Organization [employer] Address [address] [place] [address] [address] [place] [address] Care Team Providers Care Manager English Name Role Phone Unavailable Primary Care Provider [...] 02/05/2024 02/04/2023 COVID-19 Vaccine (4 - season) 2025 10/22/2021, 02/17/2021, 01/27/2021 Influenza Vaccine (#1) 2025 [...]
== END 2025-09-15 11:45 | disposition home or self-care (01) ==
LOC: HO.HSMS 11:23
PROVIDERS: PCP Nurse Practitioner Family; Visit Provider Psychiatry & Neurology Neurology
DX: G25.0 Essential tremor (principal)
CPT/HCPCS: 99214; G2211

== ENCOUNTER → 2025-09-15 11:22 | Outpatient (BNVA) | payer MEDICARE, OTHER, SELFPAY | PROVIDERS: PCP Nurse Practitioner Family; Visit Provider Psychiatry & Neurology Neurology | DX: G25.0 Essential tremor (principal) | CPT/HCPCS: 99212 ==

== ENCOUNTER 2025-10-12 08:19 | Outpatient (REF) | payer MEDICARE, OTHER, SELFPAY ==
--- NOTE | ~2025-10-12 | US_ITS ---
CLINICAL HISTORY: R74.8 - Abnormal levels of other serum enzymes US abdomen complete Comparison: None provided Findings: The visualized pancreas head is normal. The visualized aorta and inferior vena cava are normal caliber. The liver is normal in size, right lobe length is 14.5 cm. Diffusely increased echogenicity of the liver parenchyma. No discrete lesion is visualized in the imaged liver. No intrahepatic bile duct dilatation. The common duct is 6 mm in diameter. The gallbladder is normal. Negative sonographic Moses sign. The main portal vein is patent with antegrade flow. The right kidney demonstrates 9 mm simple cyst in the lower pole, otherwise normal, 9.1 cm in length. The left kidney is normal, 10.0 cm in length. The spleen is normal, 7.9 cm in length. No free fluid in the abdomen. Impression: 1. Hepatic steatosis. 2. Right renal simple cyst. This document has been electronically signed by: Taina Lees MD on 10/12/2025 11:15:43
--- OUTSIDE RECORDS SUMMARY | 2025-10-12 08:28 | XMS_ITS | Clinical Summary ---
Author Organization [employer] Address [address] [place] [address] [address] [place] [address] Care Team Providers Care Security Patrol Officer Name Role Phone Unavailable Primary Care [...]
--- OUTSIDE RECORDS SUMMARY | 2025-10-12 08:28 | XMS_ITS | Clinical Summary ---
Author Organization [employer] [facility] Address [address] [place] [address] Care Team Providers Care Violin Teacher Name Role Phone Unavailable Primary Care Provider Unavailabl e Social History Tobacco Use Types Packs/Day Years Used Date Smoking Tobacco: Never Assessed Sex and Gender Information Value Date Recorded Sex Assigned at Not on file Legal Sex Male 3:21 PM EDT Gender Identity Not on file Sexual Orientation Not on file Plan of Treatment Health Maintenance Due Date Last Done Comments Colorectal Cancer Screening: Colonoscopy 1951 DTaP,Tdap,and Td Vaccines (1 - Tdap) 1970 Pneumococcal Vaccine: 50+ Ye ars (1 of 1 - PCV) 2001 Zoster Vaccines (1 of 2) 2001 Abdominal Aortic Aneurysm (A AA) Screen 08/31/2024 Cholesterol Screening (Lipid Panel) 08/31/2024 Falls Risk Assessment 08/31/2024 Hepatitis C Screening 08/31/2024 Social Influencers of Health Screening 08/31/2024 Depression Screening 11/10/2024 COVID-19 Vaccine (1 - 2024-2 6 season) 2025 Influenza Vaccine (#1) 2025 RSV [...] complete this topic RSV Immunization Patients Un luksa 20 months Aged Out No longer eligible b ased on patient's age to complete this topic Varicella Vaccines Aged Out No longer eligible based on patient's age to complete this topic
== END 2025-10-12 08:20 | disposition home or self-care (01) ==
LOC: HO.HMGCX 08:19
PROVIDERS: PCP Nurse Practitioner Family; Visit Provider Nurse Practitioner Family
DX: R74.8 Abnormal levels of other serum enzymes (principal)
CPT/HCPCS: 76700

== ENCOUNTER → 2025-10-12 08:22 | Outpatient (BNV) | payer MEDICARE, OTHER, SELFPAY | PROVIDERS: PCP Nurse Practitioner Family; Visit Provider Radiology Diagnostic Radiology | DX: N28.1 Cyst of kidney, acquired (principal); K76.0 Fatty (change of) liver, not elsewhere classified | CPT/HCPCS: 76700 ==